=== PATIENT | male | born 1955 | race American Indian/Alaskan Native ===

== ENCOUNTER 2016-08-22 06:00 | Inpatient (IN) | payer MEDICARE, BC ==
[2016-08-22] MEDS ORDERED: Albuterol/Ipratropium 3.0-0.5 MG/3 ML Neb Soln NEB ONE (06:33)
--- NOTE | 2016-08-22 06:41 | EDM.PDOC ---
<Alex Cooley - Last Filed: 08/22/16 06:59> ED HPI GENERAL MEDICAL PROBLEM - General Chief Complaint: Respiratory Problem Stated Complaint: ILLNESS/COLD Time Seen by Provider: 08/22/16 06:35 Source of Information: Reports: Patient, Family History Limitations: Reports: No Limitations - History of Present Illness INITIAL COMMENTS - FREE TEXT/NARRATIVE: 61-year-old male who denies a history of respiratory illness presents with a 4 day history of worsening cough and shortness of breath. Yesterday he coughed so hard he became incontinent. It's become productive of sputum over the last 2 days and he thinks he's had an off-and-on fever. 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 His only other complaint is a flareup of recurring groin cystic lesions that are draining Onset: Gradual Worsens with: Reports: Other (Activity causes shortness of breath), Movement Associated Symptoms: Reports: Cough, Fever/Chills, Shortness of Breath, Weakness , Other (Incontinence from the coughing) Headache Pain Score (Numeric/FACES): 5 - Related Data Allergies Allergy/AdvReac Type Severity Reaction Status Date / Time Penicillins Allergy Rash Verified 08/22/16 06:09 shellfish derived Allergy Swollen Verified 08/22/16 06:09 Tongue Home Meds: Home Meds amLODIPine Besylate [Norvasc] 5 mg PO DAILY 12/13/12 [History] Furosemide [Lasix] 20 mg PO DAILY 08/22/16 [History] Metoprolol Tartrate [Lopressor] 100 mg PO BEDTIME 08/22/16 [History] traMADol [Ultram] 50 mg PO BID PRN 08/22/16 [History] Past Medical History Cardiovascular History: Reports: Hypertension Musculoskeletal History: Reports: Fracture Endocrine/Metabolic History: Reports: Obesity/BMI 30+ - Infectious Disease History Infectious Disease History: Reports: Chicken Pox - Past Surgical History GI Surgical History: Reports: Colonoscopy, Hernia, Inguinal Social & Family History - Tobacco Use Smoking Status *Q: Never Smoker Years of Tobacco use: 10 Used Tobacco, but Quit: No Second Hand Smoke Exposure: No - Caffeine Use Caffeine Use: Reports: Coffee - Alcohol Use Days Per Week of Alcohol Use: 7 Number of Drinks Per Day: 5 Total Drinks Per Week: 35 Date of Last Drink: 08/18/16 Time of Last Drink: 20:00 - Recreational Drug Use Recreational Drug Use: No Drug Use in Last 12 Months: No ED ROS GENERAL - Review of Systems Review Of Systems: See Below Constitutional: Reports: Fever, Chills, Malaise Respiratory: Reports: Shortness of Breath, Cough, Sputum Cardiovascular: Denies: Chest Pain GI/Abdominal: Denies: Abdominal Pain, Nausea, Vomiting Skin: Reports: Other (Draining cystic lesions in the groins) Neurological: Denies: Headache ED EXAM, GENERAL - Physical Exam Exam: See Below Free Text/Narrative:: Patient has mild increased respiratory effort and O2 saturations on room air were only 81-84%. Exam Limited By: No Limitations General Appearance: Alert, Mild Distress Eye Exam: Bilateral Eye: EOMI Respiratory/Chest: Wheezing (Diffuse inspiratory and expiratory wheezing is heard) Cardiovascular: Regular Rate, Rhythm GI/Abdominal: Soft, Non-Tender Neurological: Alert, Oriented Psychiatric: Normal Affect, Normal Mood Course - Vital Signs Last Recorded V/S: Last Vital Signs Temp 37.6 C 08/22/16 09:56 Pulse 92 08/22/16 09:56 Resp 20 08/22/16 09:56 BP 150/72 H 08/22/16 09:56 Pulse Ox 91 L 08/22/16 09:56 - Orders/Labs/Meds Orders: Active Orders 24 hr Category Date Time Status Patient Status [ADT] Routine ADT 08/22/16 08:23 Active Height and Weight [RC] DAILY Care 08/22/16 08:22 Active Intake and Output [RC] QSHIFT Care 08/22/16 08:25 Active Oxygen Therapy [RC] PRN Care 08/22/16 08:23 Active RT Aerosol Therapy [RC] ASDIRECTED Care 08/22/16 06:33 Active Up ad Brittney [RC] ASDIRECTED Care 08/22/16 08:22 Active Up to Chair [RC] QID Care 08/22/16 08:22 Active VTE/DVT Education [RC] Per Unit Routine Care 08/22/16 08:23 Active Regular Diet [DIET] Diet 08/22/16 Lunch Active CULTURE BLOOD [BC] Stat Lab 08/22/16 07:45 Received CULTURE RESPIRATORY + SMEAR [RM] Stat Lab 08/22/16 07:36 Results LEGIONELLA FA STAIN [MREF] Stat Lab 08/22/16 10:04 Received LEGIONELLA,AB IGG/IGM/IGA [REF] Routine Lab 08/22/16 07:00 Received Enoxaparin [Lovenox] Med 08/22/16 09:00 Active 30 mg SUBCUT DAILY Sodium Chloride 0.9% [Saline Flush] Med 08/22/16 08:22 Active 10 ml FLUSH ASDIRECTED PRN Saline Lock Insert [OM.PC] Routine Oth 08/22/16 08:22 Ordered Resuscitation Status Routine Resus Stat 08/22/16 08:22 Ordered Medication Orders Albuterol (Proventil Neb Soln) 2.5 mg NEB Q2H PRN PRN Reason: Congestion Enoxaparin Sodium (Lovenox) 30 mg SUBCUT DAILY ANGEL Last Admin: 08/22/16 11:02 Dose: 30 mg Azithromycin 500 mg/ Sodium (Chloride) 250 mls @ 250 mls/hr IV Q24H ANGEL Levofloxacin/Dextrose 500 mg/ (Premix) 100 mls @ 100 mls/hr IV Q24H ANGEL Sodium Chloride (Saline Flush) 10 ml FLUSH ASDIRECTED PRN PRN Reason: Keep Vein Open Last Admin: 08/22/16 08:58 Dose: 10 ml Labs: Laboratory Tests 08/22/16 08/22/16 08/22/16 Range/Units 07:09 07:09 07:21 WBC 10.3 (4.5-11.0) K/uL RBC 5.78 (4.30-5.90) M/uL Hgb 17.7 H (12.0-15.0) g/dL Hct 54.2 H (40.0-54.0) % MCV 94 (80-98) fL MCH 31 (27-31) pg MCHC 33 (32-36) % Plt Count 227 (150-400) K/uL Neut % (Auto) 70 H (36-66) % Lymph % (Auto) 12 L (24-44) % [place] % (Auto) 16 H (2-6) % Eos % (Auto) 1 L (2-4) % Baso % (Auto) 1 (0-1) % Sodium 139 L (140-148) mmol/L Potassium 3.5 L (3.6-5.2) mmol/L Chloride 100 (100-108) mmol/L Carbon Dioxide 31 (21-32) mmol/L Anion Gap 11.5 (5.0-14.0) mmol/L BUN 9 (7-18) mg/dL Creatinine 0.9 (0.8-1.3) mg/dL Est Cr Clr Drug Dosing 78.54 mL/min Estimated GFR (MDRD) > 60 (>60) Glucose 144 H (74-106) mg/dL Calcium 8.6 (8.5-10.1) mg/dL Afo-O-Tixaonavieh Pept 233 H (5-125) pg/mL Meds: Medications Generic Name Dose Route Start Last Admin Trade Name Aneesh PRN Reason Stop Dose Admin Albuterol 2.5 mg 08/22/16 08:33 Proventil Neb Soln NEB Q2H PRN Congestion Enoxaparin Sodium 30 mg 08/22/16 09:00 08/22/16 11:02 Lovenox SUBCUT 30 mg DAILY ANGEL Administration Azithromycin 500 mg/ Sodium 250 mls @ 250 mls/hr 08/23/16 10:00 Chloride IV Q24H ANGEL Levofloxacin/Dextrose 500 mg/ 100 mls @ 100 mls/hr 08/23/16 09:00 Premix IV Q24H ANGEL Sodium Chloride 10 ml 08/22/16 08:22 08/22/16 08:58 Saline Flush FLUSH 10 ml ASDIRECTED PRN Administration Keep Vein Open Discontinued Medications Generic Name Dose Route Start Last Admin Trade Name Aneesh PRN Reason Stop Dose Admin Albuterol/Ipratropium 3 ml 08/22/16 06:33 08/22/16 06:39 Duoneb 3.0-0.5 Mg/3 Ml NEB 08/22/16 06:34 3 ml ONETIME ONE Administration Levofloxacin/Dextrose 500 mg/ 100 mls @ 100 mls/hr 08/22/16 09:00 08/22/16 09 :03 Premix IV 08/22/16 09:59 100 mls/hr ONETIME ONE Administration Azithromycin 500 mg/ Sodium 250 mls @ 250 mls/hr 08/22/16 10:00 08/22/16 11: 02 Chloride IV 08/22/16 10:59 250 mls/hr ONETIME ONE Administration - Re-Assessments/Exams Free Text/Narrative Re-Assessment/Exam: 08/22/16 07:01 O2 saturations initially on room air were 80-82%. A DuoNeb was then given without significant objective improvement. Patient did cough some sputum that was collected. A CBC and BMP were obtained and the patient was sent back for a two-view chest x-ray, sputum culture was ordered. Care was turned over to Dr. Chaparro. Departure - Departure Disposition: Admitted As Inpatient 64 Clinical Impression: Atypical pneumonia, Hypoxia - Discharge Information - My Orders Last 24 Hours: My Active Orders 08/22/16 07:00 LEGIONELLA,AB IGG/IGM/IGA [REF] Routine 08/22/16 07:45 CULTURE BLOOD [BC] Stat 08/22/16 10:04 LEGIONELLA FA STAIN [MREF] Stat - Assessment/Plan Last 24 Hours: My Active Orders 08/22/16 07:00 LEGIONELLA,AB IGG/IGM/IGA [REF] Routine 08/22/16 07:45 CULTURE BLOOD [BC] Stat 08/22/16 10:04 LEGIONELLA FA STAIN [MREF] Stat <Gilson Chaparro G - Last Filed: 08/22/16 15:16> Course - Vital Signs Text/Narrative:: Dr. Arshad called @ [facility]. To see in the ED. Departure - Departure Time of Disposition: 08:35 Condition: fair
[2016-08-22] MEDS ORDERED: Sodium Chloride 0.9% 10 ML Syringe FLUSH PRN ×2 (08:22→18:00)
--- NOTE | 2016-08-22 08:41 | CR ---
Chest 2V HISTORY: dyspnea COMPARISON: 01/03/2007 FINDINGS: Interstitial lung pattern is mildly prominent diffusely compared to the prior study. Appea constantino is nonspecific. No focal consolidation is seen. Heart size is within normal limits and stable. There is no vascular redistribution or pleural fluid. There is mild flattening of the diaphragms lockhart ggesting a component of COPD. Mild atherosclerotic calcification is noted in the aortic arch. IMPRESSION: Mild nonspecific interstitial prominence. Mild nonspecific pneumonitis could be consider ed. Lungs are hyperinflated suggesting a component of COPD.
[2016-08-22] MEDS ORDERED: Levofloxacin/Dextrose 5%-Water 500 MG in Premix Bag 1 BAG IV ONE (09:00)
[2016-08-22] MEDS ORDERED: Azithromycin 500 MG in Sodium Chloride 0.9% 250 ML IV ONE ×2 (09:00→10:00)
[2016-08-22] MEDS: Enoxaparin 30 MG/0.3 ML Syringe SUBCUT SCH (11:02)
[2016-08-22] MEDS: Albuterol 0.083% 2.5 MG/3 ML Neb Soln NEB PRN ×2 (17:31→21:42)
--- NOTE | 2016-08-22 17:41 | PCM.HP ---
H&P History of Present Illness - General Date of Service: 08/22/16 Admit Problem/Dx: Admission Diagnosis/Problem Admission Diagnosis/Problem Pneumonia - History of Present Illness Initial Comments - Free Text/Narative: Louis comes in because of shortness of breath and coughing. He hasn't slept for several nights and feels feverish. It has been getting worse for the last 4 days and didn't want to come in thinking it would get better. He also has a cough with yellow production. He recently coughed so hard he fainted and had loss of urine. Onset of Symptoms: Reports: Gradual Duration of Symptoms: Reports: Day(s): Location: Reports: Chest Associated Symptoms: Reports: Cough, Fever/Chills, Loss of Appetite, Shortness of Breath, Weakness Headache Pain Score (Numeric/FACES): 0 - Related Data Allergies/Adverse Reactions: Allergies Allergy/AdvReac Type Severity Reaction Status Date / Time Penicillins Allergy Rash Verified 08/22/16 06:09 shellfish derived Allergy Swollen Verified 08/22/16 06:09 Tongue Home Medications: Home Meds amLODIPine Besylate [Norvasc] 5 mg PO DAILY 12/13/12 [History] Furosemide [Lasix] 20 mg PO DAILY 08/22/16 [History] traMADol [Ultram] 50 mg PO BID PRN 08/22/16 [History] Metoprolol Succinate [Toprol XL 100mg] 100 mg PO BEDTIME 08/23/16 [History] Past Medical History Cardiovascular History: Reports: Hypertension Respiratory History: Reports: Sleep Apnea Musculoskeletal History: Reports: Fracture Endocrine/Metabolic History: Reports: Obesity/BMI 30+ - Infectious Disease History Infectious Disease History: Reports: Chicken Pox - Past Surgical History GI Surgical History: Reports: Colonoscopy, Hernia, Inguinal Social & Family History - Family History Family Medical History: Noncontributory - Tobacco Use Smoking Status *Q: Former Smoker Years of Tobacco use: 1 Packs/Tins Daily: 0.5 Used Tobacco, but Quit: Yes Month Tobacco Last Used: unknown Second Hand Smoke Exposure: No - Caffeine Use Caffeine Use: Reports: Coffee - Alcohol Use Days Per Week of Alcohol Use: 7 Number of Drinks Per Day: 2 Total Drinks Per Week: 14 Date of Last Drink: 08/18/16 Time of Last Drink: 20:00 - Recreational Drug Use Recreational Drug Use: No Drug Use in Last 12 Months: No H&P Review of Systems - Review of Systems: Review Of Systems: See Below General: Reports: Fever, Chills, Weakness, Fatigue, Decreased Appetite Pulmonary: Reports: Shortness of Breath, Wheezing, Cough, Sputum Cardiovascular: Reports: Dyspnea on Exertion, Orthopnea Gastrointestinal: Reports: Nausea Genitourinary: Reports: Incontinence Musculoskeletal: Reports: Muscle Pain Neurological: Reports: Difficulty Walking, Weakness Exam - Exam Exam: See Below - Vital Signs Vital Signs: Last Vital Signs Temp 99.7 F 08/22/16 09:56 Pulse 92 08/22/16 09:56 Resp 20 08/22/16 09:56 BP 150/72 H 08/22/16 09:56 Pulse Ox 91 L 08/22/16 09:56 Weight: 354 lb - Exam Quality Assessment: Supplemental Oxygen General: Oriented, Cooperative, Other HEENT: PERRLA, Conjunctiva Clear, EACs Clear, Posterior Pharynx Clear Neck: Supple Lungs: Decreased Breath Sounds, Rhonchi, Wheezing Cardiovascular: Regular Rate Abdomen: Normal Bowel Sounds Back Exam: Normal Inspection Extremities: Edema Peripheral Pulses: 1+: Radial (L), Radial (R) Skin: Other (lesion on the groin area cysts that are draining.) Neuro Extensive - Mental Status: Alert, Oriented x3, Normal Mood/Affect, Normal Cognition Neuro Extensive - Motor, Sensory, Reflexes: Abnormal Gait DTR: 1+: Bicep (L), Bicep (R) - Patient Data Result Diagrams: 08/23/16 08:53 08/23/16 08:53 *Q Meaningful Use (ADM) - VTE *Q VTE Criteria *Q: - Stroke *Q Stroke Criteria *Q: - AMI *Q AMI Criteria *Q: Problem List Initiated/Reviewed/Updated: Yes Orders Last 24hrs: Active Orders 24 hr Category Date Time Status Albuterol [Proventil Neb Soln] Med 08/22/16 08:33 Active 2.5 mg NEB Q2H PRN Azithromycin [Zithromax] 500 mg Med 08/23/16 10:00 Active Sodium Chloride 0.9% [Normal Saline] 250 ml IV Q24H Levofloxacin/Dextrose 5%-Water [Levaquin in D5W 500 MG/ Med 08/23/16 09:00 Active 100 ML] 500 mg Premix Bag 1 bag IV Q24H RT Acapella [RESPCARE] Routine Oth 08/22/16 08:40 Active Medication Orders Albuterol (Proventil Neb Soln) 2.5 mg NEB Q2H PRN PRN Reason: Congestion Last Admin: 08/22/16 17:31 Dose: 2.5 mg Enoxaparin Sodium (Lovenox) 30 mg SUBCUT DAILY ANGEL Last Admin: 08/22/16 11:02 Dose: 30 mg Azithromycin 500 mg/ Sodium (Chloride) 250 mls @ 250 mls/hr IV Q24H ANGEL Levofloxacin/Dextrose 500 mg/ (Premix) 100 mls @ 100 mls/hr IV Q24H ANGEL Sodium Chloride (Saline Flush) 10 ml FLUSH ASDIRECTED PRN PRN Reason: Keep Vein Open Last Admin: 08/22/16 08:58 Dose: 10 ml Assessment/Plan Comment:: Assessment/Plan: #1. Pneumonia. Will admit to the hospital and wait for the cultures. #2. Hypoxemia: He needs oxygen as on 3 liters his sat is only 91% #3. Hypertension: Will check closely and adjust meds as needed. His BP is good control at the present time. #4. DM II: Will follow blood sugars #5. Furuncle: This should resolve with the meds to be given. #6. Morbid obesity: I will continue to encourage him to lose weight. #7. COPD: Will give nebs and do a PFT when improved.
[2016-08-22] MEDS ORDERED: Sodium Chloride 0.9% 100 ML IV ONE (18:00)
[2016-08-22] MEDS ORDERED: Iopamidol 755 Mg/ML 100 ML Bottle IV SCH (18:00)
[2016-08-22] MEDS ORDERED: Metoprolol Tartrate 50 MG Tab PO SCH (22:30)
[2016-08-23] MEDS: Enoxaparin 30 MG/0.3 ML Syringe SUBCUT SCH (08:30)
[2016-08-23] MEDS: Levofloxacin/Dextrose 5%-Water 500 MG in Premix Bag 1 BAG IV SCH (08:31)
[2016-08-23] MEDS: Albuterol 0.083% 2.5 MG/3 ML Neb Soln NEB PRN ×3 (08:50→20:21)
[2016-08-23] MEDS: Azithromycin 500 MG in Sodium Chloride 0.9% 250 ML IV SCH (09:48)
[2016-08-23] MEDS ORDERED: Metoprolol Succinate 50 MG Tab.ER PO SCH (21:00)
[2016-08-23] MEDS ORDERED: Metoprolol Tartrate 25 MG Tab PO SCH (21:00)
--- NOTE | 2016-08-23 22:12 | PCM.PN ---
- General Info Date of Service: 08/23/16 Subjective Update: He still has respiratory distress and on 3 liters of oxygen. - Review of Systems General: Reports: Weakness Pulmonary: Reports: shortness of breath, cough, sputum, wheezing Cardiovascular: Reports: Dyspnea on Exertion Gastrointestinal: Reports: Decreased appetite Genitourinary: Reports: incontinence (Loss of urine in the past but not presently.) Skin: Reports: rash Neurological: Reports: Weakness Psychiatric: Reports: depression - Patient Data Vitals - most recent: Last Vital Signs Temp 99.1 F 08/23/16 19:00 Pulse 87 08/23/16 20:21 Resp 16 08/23/16 19:00 BP 129/68 08/23/16 20:21 Pulse Ox 93 L 08/23/16 19:00 Weight - most recent: 354 lb I&O - last 24 hours: Intake & Output 08/23/16 08/23/16 08/23/16 06:59 14:59 22:59 Intake Total 360 250 Balance 360 250 Lab Results last 24 hrs: Laboratory Results - last 24 hr 08/23/16 08/23/16 Range/Units 08:53 08:53 WBC 7.5 (4.5-11.0) K/uL RBC 5.47 (4.30-5.90) M/uL Hgb 16.9 H (12.0-15.0) g/dL Hct 51.7 (40.0-54.0) % MCV 95 (80-98) fL MCH 31 (27-31) pg MCHC 33 (32-36) % Plt Count 208 (150-400) K/uL Neut % (Auto) 62 (36-66) % Lymph % (Auto) 20 L (24-44) % [place] % (Auto) 15 H (2-6) % Eos % (Auto) 2 (2-4) % Baso % (Auto) 1 (0-1) % Sodium 142 (140-148) mmol/L Potassium 3.8 (3.6-5.2) mmol/L Chloride 102 (100-108) mmol/L Carbon Dioxide 31 (21-32) mmol/L Anion Gap 9.0 (5.0-14.0) mmol/L BUN 13 (7-18) mg/dL Creatinine 0.8 (0.8-1.3) mg/dL Est Cr Clr Drug Dosing 88.36 mL/min Estimated GFR (MDRD) > 60 (>60) Glucose 123 H (74-106) mg/dL Calcium 8.4 L (8.5-10.1) mg/dL Med Orders - Current: Current Medications Albuterol (Proventil Neb Soln) 2.5 mg NEB Q2H PRN PRN Reason: Congestion Last Admin: 08/23/16 20:21 Dose: 2.5 mg Enoxaparin Sodium (Lovenox) 40 mg SUBCUT DAILY [facility] Azithromycin 500 mg/ Sodium (Chloride) 250 mls @ 250 mls/hr IV Q24H ANGEL Last Admin: 08/23/16 09:48 Dose: 250 mls/hr Levofloxacin/Dextrose 500 mg/ (Premix) 100 mls @ 100 mls/hr IV Q24H [facility] Last Admin: 08/23/16 08:31 Dose: 100 mls/hr Metoprolol Succinate (Toprol Xl) 100 mg PO BEDTIME [facility] Last Admin: 08/23/16 20:21 Dose: 100 mg Sodium Chloride (Saline Flush) 10 ml FLUSH ASDIRECTED PRN PRN Reason: Keep Vein Open Last Admin: 08/22/16 08:58 Dose: 10 ml Discontinued Medications Albuterol/Ipratropium (Duoneb 3.0-0.5 Mg/3 Ml) 3 ml NEB ONETIME ONE Stop: 08/22/16 06:34 Last Admin: 08/22/16 06:39 Dose: 3 ml Enoxaparin Sodium (Lovenox) 30 mg SUBCUT DAILY [facility] Last Admin: 08/23/16 08:30 Dose: 30 mg Levofloxacin/Dextrose 500 mg/ (Premix) 100 mls @ 100 mls/hr IV ONETIME ONE Stop: 08/22/16 09:59 Last Admin: 08/22/16 09:03 Dose: 100 mls/hr Azithromycin 500 mg/ Sodium (Chloride) 250 mls @ 250 mls/hr IV ONETIME ONE Stop: 08/22/16 10:59 Last Admin: 08/22/16 11:02 Dose: 250 mls/hr Sodium Chloride (Normal Saline) 100 mls @ 3 mls/sec IV ONETIME ONE Stop: 08/22/16 18:01 Last Admin: 08/22/16 18:16 Dose: 3 mls/sec Iopamidol (Isovue-370 (76%)) 100 ml IV . DIRECTED ANGEL Last Admin: 08/22/16 18:16 Dose: 100 ml Metoprolol Tartrate (Lopressor) 100 mg PO BEDTIME ANGEL Metoprolol Tartrate (Lopressor) 100 mg PO BEDTIME ANGEL Last Admin: 08/23/16 03:11 Dose: Not Given Sodium Chloride (Saline Flush) 10 ml FLUSH ONETIME PRN PRN Reason: PER RADIOLOGY PROTOCOL Last Admin: 08/22/16 18:16 Dose: 10 ml - Problem List Review Problem List Initiated/Reviewed/Updated: Yes - My Orders Last 24 Hours: My Active Orders 08/23/16 09:00 Levofloxacin/Dextrose 5%-Water [Levaquin in D5W 500 MG/100 ML] 500 mg Premix Bag 1 bag IV Q24H 08/23/16 10:00 Azithromycin [Zithromax] 500 mg Sodium Chloride 0.9% [Normal Saline] 250 ml IV Q24H 08/23/16 21:00 Metoprolol Succinate [Toprol XL] 100 mg PO BEDTIME 08/24/16 09:00 Enoxaparin [Lovenox] 40 mg SUBCUT DAILY - Plan Plan:: Assessment/Plan: #1. Pneumonia. The chest film showed a reticular pattern of lung disease. #2. Hypoxemia: He needs oxygen as on 3 liters his sat is only 91%. with oxygen and is concerned with a possible PE. A CT was done which did not show any evidence of a PE. #3. Hypertension: Will check closely and adjust meds as needed. His BP is good control at the present time. #4. DM II: Blood sugars are slightly elevated. #5. Furuncle: This should resolve with the meds to be given. #6. Morbid obesity: I will continue to encourage him to lose weight. #7. COPD: Will give nebs and do a PFT when improved.
[2016-08-24] MEDS: Albuterol 0.083% 2.5 MG/3 ML Neb Soln NEB PRN (07:24)
[2016-08-24] MEDS: Enoxaparin 40 MG/0.4 ML Syringe SUBCUT SCH (09:18)
[2016-08-24] MEDS: Levofloxacin/Dextrose 5%-Water 500 MG in Premix Bag 1 BAG IV SCH (09:18)
[2016-08-24] MEDS: Azithromycin 500 MG in Sodium Chloride 0.9% 250 ML IV SCH (10:41)
[2016-08-24] MEDS: Albuterol/Ipratropium 3.0-0.5 MG/3 ML Neb Soln NEB SCH ×3 (11:15→20:53)
[2016-08-24] MEDS ORDERED: Metoprolol Succinate 50 MG Tab.ER PO SCH ×2 (12:00→21:00)
[2016-08-24] MEDS: Furosemide 20 MG Tab PO SCH ×2 (12:42→12:56)
[2016-08-24] MEDS: amLODIPine 10 MG Tab PO SCH (13:46)
--- NOTE | 2016-08-24 19:52 | PCM.PN ---
- General Info Date of Service: 08/24/16 Admission Dx/Problem (Free Text): Continues to have respiratory distress and on 4 liters of Oxygen Functional Status: Reports: pain controlled - Review of Systems General: Reports: Fatigue HEENT: Reports: no symptoms Pulmonary: Reports: shortness of breath, cough, sputum Cardiovascular: Reports: Dyspnea on Exertion Gastrointestinal: Reports: No symptoms Genitourinary: Reports: no symptoms Musculoskeletal: Reports: no symptoms Psychiatric: Reports: no symptoms - Patient Data Vitals - most recent: Last Vital Signs Temp 99.2 F 08/24/16 19:00 Pulse 84 08/24/16 19:00 Resp 20 08/24/16 19:00 BP 135/64 08/24/16 19:00 Pulse Ox 93 L 08/24/16 19:00 Weight - most recent: 356 lb 14.4 oz I&O - last 24 hours: Intake & Output 08/24/16 08/24/16 08/24/16 06:59 14:59 22:59 Intake Total 1070 800 Balance 1070 800 [place]in Results last 24 hrs: Microbiology 08/22/16 10:04 Specimen Source - Final Sputum - Expectorated Legionella Direct FA - Final Specimen Comment (AYDIN) - Final Med Orders - Current: Current Medications Albuterol (Proventil Neb Soln) 2.5 mg NEB Q2H PRN PRN Reason: Congestion Last Admin: 08/24/16 07:24 Dose: 2.5 mg Albuterol/Ipratropium (Duoneb 3.0-0.5 Mg/3 Ml) 3 ml NEB QIDRT [facility] Last Admin: 08/24/16 14:30 Dose: 3 ml Amlodipine Besylate (Norvasc) 10 mg PO DAILY [facility] Last Admin: 08/24/16 13:46 Dose: Not Given Enoxaparin Sodium (Lovenox) 40 mg SUBCUT DAILY [facility] Last Admin: 08/24/16 09:18 Dose: 40 mg Furosemide (Lasix) 20 mg PO DAILY [facility] Last Admin: 08/24/16 12:56 Dose: Not Given Azithromycin 500 mg/ Sodium (Chloride) 250 mls @ 250 mls/hr IV Q24H [facility] Last Admin: 08/24/16 10:41 Dose: 250 mls/hr Levofloxacin/Dextrose 500 mg/ (Premix) 100 mls @ 100 mls/hr IV Q24H [facility] Last Admin: 08/24/16 09:18 Dose: 100 mls/hr Metoprolol Succinate (Toprol Xl) 100 mg PO DAILY [facility] Sodium Chloride (Saline Flush) 10 ml FLUSH ASDIRECTED PRN PRN Reason: Keep Vein Open Last Admin: 08/22/16 08:58 Dose: 10 ml Discontinued Medications Albuterol/Ipratropium (Duoneb 3.0-0.5 Mg/3 Ml) 3 ml NEB ONETIME ONE Stop: 08/22/16 06:34 Last Admin: 08/22/16 06:39 Dose: 3 ml Amlodipine Besylate (Norvasc) 10 mg PO BEDTIME [facility] Enoxaparin Sodium (Lovenox) 30 mg SUBCUT DAILY [facility] Last Admin: 08/23/16 08:30 Dose: 30 mg Levofloxacin/Dextrose 500 mg/ (Premix) 100 mls @ 100 mls/hr IV ONETIME ONE Stop: 08/22/16 09:59 Last Admin: 08/22/16 09:03 Dose: 100 mls/hr Azithromycin 500 mg/ Sodium (Chloride) 250 mls @ 250 mls/hr IV ONETIME ONE Stop: 08/22/16 10:59 Last Admin: 08/22/16 11:02 Dose: 250 mls/hr Sodium Chloride (Normal Saline) 100 mls @ 3 mls/sec IV ONETIME ONE Stop: 08/22/16 18:01 Last Admin: 08/22/16 18:16 Dose: 3 mls/sec Iopamidol (Isovue-370 (76%)) 100 ml IV . DIRECTED [facility] Last Admin: 08/22/16 18:16 Dose: 100 ml Metoprolol Succinate (Toprol Xl) 100 mg PO BEDTIME [facility] Last Admin: 08/23/16 20:21 Dose: 100 mg Metoprolol Succinate (Toprol Xl) 100 mg PO DAILY [facility] Last Admin: 08/24/16 13:45 Dose: Not Given Metoprolol Tartrate (Lopressor) 100 mg PO BEDTIME [facility] Metoprolol Tartrate (Lopressor) 100 mg PO BEDTIME [facility] Last Admin: 08/23/16 03:11 Dose: Not Given Sodium Chloride (Saline Flush) 10 ml FLUSH ONETIME PRN PRN Reason: PER RADIOLOGY PROTOCOL Last Admin: 08/22/16 18:16 Dose: 10 ml - Exam General: alert, oriented HEENT: Pupils equal, Pupils reactive, EOMI, Mucous membr. moist/pink Neck: supple Lungs: Clear to auscultation, Normal respiratory effort Cardiovascular: Regular Rate, Regular Rhythm Back Exam: Normal Inspection Extremities: edema Peripheral Pulses: 1+: Radial (L), Radial (R) Neurological: no new focal deficit Psy/Mental Status: alert, normal affect, normal mood - Problem List Review Problem List Initiated/Reviewed/Updated: Yes - My Orders Last 24 Hours: My Active Orders 08/24/16 09:00 Enoxaparin [Lovenox] 40 mg SUBCUT DAILY 08/24/16 10:45 Echo Comp wo Cont [US] Routine 08/24/16 11:00 Albuterol/Ipratropium [DuoNeb 3.0-0.5 MG/3 ML] 3 ml NEB QIDRT 08/24/16 11:06 RT Aerosol Therapy [RC] ASDIRECTED 08/24/16 11:15 Furosemide [Lasix] 20 mg PO DAILY 08/24/16 13:55 RT Evaluate for Home Oxygen [RC] Click to Edit 08/24/16 14:00 amLODIPine [Norvasc] 10 mg PO DAILY 08/24/16 21:00 Metoprolol Succinate [Toprol XL] 100 mg PO DAILY - Plan Plan:: Assessment/Plan: #1. Pneumonia. The chest film showed a reticular pattern of lung disease. CXR-in the morning. #2. Hypoxemia: He needs oxygen as on 4 liters his sat is only 91%. Able to walk better today than for the last several days. #3. Hypertension: Adjkusted meds today. #4. DM II: Blood sugars are slightly elevated. #5. Furuncle: This should resolve with the meds to be given. #6. Morbid obesity: I will continue to encourage him to lose weight. #7. COPD: Will give nebs and do a PFT when improved. Will do PFT tomorrow with and without oxygen and do a c-pap tonight with and without oxygen to see if he needs oxygen at night.
[2016-08-24] MEDS ORDERED: amLODIPine 10 MG Tab PO SCH (21:00)
[2016-08-25] MEDS: Albuterol/Ipratropium 3.0-0.5 MG/3 ML Neb Soln NEB SCH ×2 (07:26→10:50)
[2016-08-25] MEDS: Furosemide 20 MG Tab PO SCH (08:06)
[2016-08-25] MEDS: amLODIPine 10 MG Tab PO SCH (08:06)
[2016-08-25] MEDS: Enoxaparin 40 MG/0.4 ML Syringe SUBCUT SCH (08:07)
[2016-08-25] MEDS: Levofloxacin/Dextrose 5%-Water 500 MG in Premix Bag 1 BAG IV SCH (08:07)
--- NOTE | 2016-08-25 08:16 | PCM.PN ---
- General Info Date of Service: 08/25/16 Functional Status: Reports: pain controlled - Review of Systems General: Reports: No Symptoms HEENT: Reports: no symptoms Pulmonary: Reports: shortness of breath, cough, sputum Cardiovascular: Reports: Dyspnea on Exertion Gastrointestinal: Reports: No symptoms Genitourinary: Reports: no symptoms Musculoskeletal: Reports: no symptoms Skin: Reports: no symptoms Neurological: Reports: No Symptoms Psychiatric: Reports: no symptoms - Patient Data Vitals - most recent: Last Vital Signs Temp 97.5 F 08/25/16 07:11 Pulse 67 08/25/16 07:11 Resp 18 08/25/16 07:11 BP 123/63 08/25/16 08:06 Pulse Ox 92 L 08/25/16 07:11 Weight - most recent: 365 lb 12.8 oz I&O - last 24 hours: Intake & Output 08/24/16 08/25/16 08/25/16 22:59 06:59 14:59 Intake Total 800 Balance 800 Aydin Results last 24 hrs: Microbiology 08/22/16 10:04 Specimen Source - Final Sputum - Expectorated Legionella Direct FA - Final Specimen Comment (AYDIN) - Final Med Orders - Current: Current Medications Albuterol (Proventil Neb Soln) 2.5 mg NEB Q2H PRN PRN Reason: Congestion Last Admin: 08/24/16 07:24 Dose: 2.5 mg Albuterol/Ipratropium (Duoneb 3.0-0.5 Mg/3 Ml) 3 ml NEB QIDRT [facility] Last Admin: 08/25/16 07:26 Dose: 3 ml Amlodipine Besylate (Norvasc) 10 mg PO DAILY [facility] Last Admin: 08/25/16 08:06 Dose: 10 mg Enoxaparin Sodium (Lovenox) 40 mg SUBCUT DAILY [facility] Last Admin: 08/25/16 08:07 Dose: 40 mg Furosemide (Lasix) 20 mg PO DAILY [facility] Last Admin: 08/25/16 08:06 Dose: 20 mg Azithromycin 500 mg/ Sodium (Chloride) 250 mls @ 250 mls/hr IV Q24H [facility] Last Admin: 08/24/16 10:41 Dose: 250 mls/hr Levofloxacin/Dextrose 500 mg/ (Premix) 100 mls @ 100 mls/hr IV Q24H [facility] Last Admin: 08/25/16 08:07 Dose: 100 mls/hr Metoprolol Succinate (Toprol Xl) 100 mg PO BEDTIME [facility] Sodium Chloride (Saline Flush) 10 ml FLUSH ASDIRECTED PRN PRN Reason: Keep Vein Open Last Admin: 08/22/16 08:58 Dose: 10 ml Discontinued Medications Albuterol/Ipratropium (Duoneb 3.0-0.5 Mg/3 Ml) 3 ml NEB ONETIME ONE Stop: 08/22/16 06:34 Last Admin: 08/22/16 06:39 Dose: 3 ml Amlodipine Besylate (Norvasc) 10 mg PO BEDTIME [facility] Enoxaparin Sodium (Lovenox) 30 mg SUBCUT DAILY [facility] Last Admin: 08/23/16 08:30 Dose: 30 mg Levofloxacin/Dextrose 500 mg/ (Premix) 100 mls @ 100 mls/hr IV ONETIME ONE Stop: 08/22/16 09:59 Last Admin: 08/22/16 09:03 Dose: 100 mls/hr Azithromycin 500 mg/ Sodium (Chloride) 250 mls @ 250 mls/hr IV ONETIME ONE Stop: 08/22/16 10:59 Last Admin: 08/22/16 11:02 Dose: 250 mls/hr Sodium Chloride (Normal Saline) 100 mls @ 3 mls/sec IV ONETIME ONE Stop: 08/22/16 18:01 Last Admin: 08/22/16 18:16 Dose: 3 mls/sec Iopamidol (Isovue-370 (76%)) 100 ml IV . DIRECTED [facility] Last Admin: 08/22/16 18:16 Dose: 100 ml Metoprolol Succinate (Toprol Xl) 100 mg PO BEDTIME [facility] Last Admin: 08/23/16 20:21 Dose: 100 mg Metoprolol Succinate (Toprol Xl) 100 mg PO DAILY [facility] Last Admin: 08/24/16 13:45 Dose: Not Given Metoprolol Succinate (Toprol Xl) 100 mg PO DAILY [facility] Last Admin: 08/24/16 20:52 Dose: 100 mg Metoprolol Tartrate (Lopressor) 100 mg PO BEDTIME [facility] Metoprolol Tartrate (Lopressor) 100 mg PO BEDTIME [facility] Last Admin: 08/23/16 03:11 Dose: Not Given Sodium Chloride (Saline Flush) 10 ml FLUSH ONETIME PRN PRN Reason: PER RADIOLOGY PROTOCOL Last Admin: 08/22/16 18:16 Dose: 10 ml - Exam General: alert, oriented HEENT: Pupils equal, Pupils reactive, EOMI, Mucous membr. moist/pink Neck: supple Lungs: Clear to auscultation, Normal respiratory effort Cardiovascular: Regular Rate, Regular Rhythm Abdomen: bowel sounds present, soft, no tenderness, no distension Extremities: edema Peripheral Pulses: 1+: Radial (L), Radial (R) Skin: warm, dry, intact Psy/Mental Status: alert, normal affect, normal mood - Problem List Review Problem List Initiated/Reviewed/Updated: Yes - My Orders Last 24 Hours: My Active Orders 08/24/16 09:00 Enoxaparin [Lovenox] 40 mg SUBCUT DAILY 08/24/16 11:00 Albuterol/Ipratropium [DuoNeb 3.0-0.5 MG/3 ML] 3 ml NEB QIDRT 08/24/16 11:06 RT Aerosol Therapy [RC] ASDIRECTED 08/24/16 11:15 Furosemide [Lasix] 20 mg PO DAILY 08/24/16 13:55 RT Evaluate for Home Oxygen [RC] Click to Edit 08/24/16 14:00 amLODIPine [Norvasc] 10 mg PO DAILY 08/25/16 05:11 CXR [Chest 2V] [CR] Routine 08/25/16 07:00 Echo Comp wo Cont [US] Routine 08/25/16 21:00 Metoprolol Succinate [Toprol XL] 100 mg PO BEDTIME - Plan Plan:: Assessment/Plan: #1. Pneumonia/bronchitis. Improving. CXR reveals no significant change minor improvement. #2. Hypoxemia: He needs oxygen as on 4 liters his sat 91% #3. Hypertension: Will check closely and adjust meds as needed. His BP is good control at the present time. #4. DM II: Will continue to follow blood sugars and do a HBA1C in the office. #5. Furuncle: This is resolving with the meds. #6. Morbid obesity: I will continue to encourage him to lose weight. #7. COPD: PFT done this morning and he does qualify for oxygen 31/10 #8. Sleep Apnea: He is on C-pap at home. He did better on C-pap and oxygen last night. Will continue C-pap and oxygen at home.
--- NOTE | 2016-08-25 08:19 | PCM.DCSUM1 ---
Discharge Summary - Hospital Course Brief History: Admitted from home in respiratory distress as he had be ill for several days. He had shortness of breath and coughing. He hadn't slept for several nights and feels feverish. It has been getting worse for the last 4 days and didn't want to come in thinking it would get better. He also has a cough with yellow production. He recently coughed so hard he fainted and had loss of urine. - Discharge Data Discharge Date: 08/25/16 Discharge Disposition: Home, Self-Care 01 Condition: Fair - Patient Summary/Data Hospital Course: He was started on antibiotics and made slow improvement. PFT showed sats on room air at rest 84% with a pulse of 69. On 3 L cannula 88% with pulse of 69. On 4L 91% with pulse of 67. CXR show a reticular pattern throughout the lung with minimal change after antibiotics. Legionella showed slightly + 1.03. Hb 16-17 while in the sospital. WBC normal. - Patient Instructions Diet, Other: Heart healths and reduced javan. Activity: As Tolerated Activity, Other: with oxygen - Discharge Plan Home Medications: Home Meds amLODIPine Besylate [Norvasc] 5 mg PO DAILY 12/13/12 [History] Furosemide [Lasix] 20 mg PO DAILY 08/22/16 [History] traMADol [Ultram] 50 mg PO BID PRN 08/22/16 [History] Metoprolol Succinate [Toprol XL 100mg] 100 mg PO BEDTIME 08/23/16 [History] Albuterol/Ipratropium [DuoNeb 3.0-0.5 MG/3 ML] 3 ml NEB QIDRT neb 08/25/16 [Rx] Azithromycin [Zithromax] 500 mg PO Q24H #7 vial 08/25/16 [Rx] Levofloxacin/Dextrose 5%-Water [Levaquin in D5W 500 MG/100 ML] 500 mg PO Q24H # 7 bag 08/25/16 [Rx] Forms: ED Department Discharge Referrals: Hira Arshad Sr, MD [Primary Care Provider] - - Discharge Summary/Plan Comment DC Time >30 min.: Yes Discharge Summary/Plan Comment: Assessment/Plan: #1. Pneumonia/bronchitis. Improving. CXR reveals no significant change minor improvement. #2. Hypoxemia: He needs oxygen as on 4 liters his sat 91% #3. Hypertension: Will check closely and adjust meds as needed. His BP is good control at the present time. #4. DM II: Will continue to follow blood sugars and do a HBA1C in the office. #5. Furuncle: This is resolving with the meds. #6. Morbid obesity: I will continue to encourage him to lose weight. #7. COPD: PFT done this morning and he does qualify for oxygen 31/10 #8. Sleep Apnea: He is on C-pap at home. He did better on C-pap and oxygen last night. Will continue C-pap and oxygen at home. - Patient Data Vitals - Most Recent: Last Vital Signs Temp 97.5 F 08/25/16 07:11 Pulse 67 08/25/16 07:11 Resp 18 08/25/16 07:11 BP 123/63 08/25/16 08:06 Pulse Ox 92 L 08/25/16 07:11 Weight - Most Recent: 365 lb 12.8 oz I&O - Last 24 hours: Intake & Output 08/24/16 08/25/16 08/25/16 22:59 06:59 14:59 Intake Total 800 Balance 800 KIMBERLY Results - Last 24 hrs: Microbiology 08/22/16 10:04 Specimen Source - Final Sputum - Expectorated Legionella Direct FA - Final Specimen Comment (KIMBERLY) - Final Med Orders - Current: Current Medications Albuterol (Proventil Neb Soln) 2.5 mg NEB Q2H PRN PRN Reason: Congestion Last Admin: 08/24/16 07:24 Dose: 2.5 mg Albuterol/Ipratropium (Duoneb 3.0-0.5 Mg/3 Ml) 3 ml NEB QIDRT [facility] Last Admin: 08/25/16 07:26 Dose: 3 ml Amlodipine Besylate (Norvasc) 10 mg PO DAILY [facility] Last Admin: 08/25/16 08:06 Dose: 10 mg Enoxaparin Sodium (Lovenox) 40 mg SUBCUT DAILY [facility] Last Admin: 08/25/16 08:07 Dose: 40 mg Furosemide (Lasix) 20 mg PO DAILY [facility] Last Admin: 08/25/16 08:06 Dose: 20 mg Azithromycin 500 mg/ Sodium (Chloride) 250 mls @ 250 mls/hr IV Q24H [facility] Last Admin: 08/24/16 10:41 Dose: 250 mls/hr Levofloxacin/Dextrose 500 mg/ (Premix) 100 mls @ 100 mls/hr IV Q24H [facility] Last Admin: 08/25/16 08:07 Dose: 100 mls/hr Metoprolol Succinate (Toprol Xl) 100 mg PO BEDTIME [facility] Sodium Chloride (Saline Flush) 10 ml FLUSH ASDIRECTED PRN PRN Reason: Keep Vein Open Last Admin: 08/22/16 08:58 Dose: 10 ml Discontinued Medications Albuterol/Ipratropium (Duoneb 3.0-0.5 Mg/3 Ml) 3 ml NEB ONETIME ONE Stop: 08/22/16 06:34 Last Admin: 08/22/16 06:39 Dose: 3 ml Amlodipine Besylate (Norvasc) 10 mg PO BEDTIME [facility] Enoxaparin Sodium (Lovenox) 30 mg SUBCUT DAILY [facility] Last Admin: 08/23/16 08:30 Dose: 30 mg Levofloxacin/Dextrose 500 mg/ (Premix) 100 mls @ 100 mls/hr IV ONETIME ONE Stop: 08/22/16 09:59 Last Admin: 08/22/16 09:03 Dose: 100 mls/hr Azithromycin 500 mg/ Sodium (Chloride) 250 mls @ 250 mls/hr IV ONETIME ONE Stop: 08/22/16 10:59 Last Admin: 08/22/16 11:02 Dose: 250 mls/hr Sodium Chloride (Normal Saline) 100 mls @ 3 mls/sec IV ONETIME ONE Stop: 08/22/16 18:01 Last Admin: 08/22/16 18:16 Dose: 3 mls/sec Iopamidol (Isovue-370 (76%)) 100 ml IV . DIRECTED [facility] Last Admin: 08/22/16 18:16 Dose: 100 ml Metoprolol Succinate (Toprol Xl) 100 mg PO BEDTIME [facility] Last Admin: 08/23/16 20:21 Dose: 100 mg Metoprolol Succinate (Toprol Xl) 100 mg PO DAILY [facility] Last Admin: 08/24/16 13:45 Dose: Not Given Metoprolol Succinate (Toprol Xl) 100 mg PO DAILY [facility] Last Admin: 08/24/16 20:52 Dose: 100 mg Metoprolol Tartrate (Lopressor) 100 mg PO BEDTIME [facility] Metoprolol Tartrate (Lopressor) 100 mg PO BEDTIME [facility] Last Admin: 08/23/16 03:11 Dose: Not Given Sodium Chloride (Saline Flush) 10 ml FLUSH ONETIME PRN PRN Reason: PER RADIOLOGY PROTOCOL Last Admin: 08/22/16 18:16 Dose: 10 ml *Q Meaningful Use (DIS) - VTE *Q VTE Criteria *Q: - Stroke *Q Stroke Criteria *Q: - AMI *Q AMI Criteria *Q:
--- NOTE | 2016-08-25 09:22 | CR ---
Chest 2V HISTORY: pneumonia COMPARISON: 08/22/2016 FINDINGS: Mild interstitial prominence is redemonstrated. Possible mild increase in infiltrates or a telectasis right lung base. There is mild cardiomegaly. Mild pleural thickening is redemonstrated bi laterally. There are old healed rib fractures. Remainder the exam is unchanged. IMPRESSION: Possible mild interval increase in infiltrates versus atelectasis right lower lobe. Mild cardiomegaly and mild diffuse interstitial prominence are noted. I cannot completely exclude early CHF or fluid overload. Recommend clinical correlation
[2016-08-25] MEDS: Azithromycin 500 MG in Sodium Chloride 0.9% 250 ML IV SCH (10:30)
[2016-08-25 11:23] VITALS: BP 126/64
[2016-08-25] MEDS ORDERED: Metoprolol Succinate 50 MG Tab.ER PO SCH (21:00)
--- NOTE | 2016-08-26 07:41 | ECHO ---
REFERRING PRACTITIONER: 1. AO ROOT: 3.35. (NL = 2.0-3.7) 2. AORTIC VALVE EXCURSION: 3. LA: 3.66 CM (NL = 1.9-4.0) 4. RV: 3.38. (NL = .09-2.6) 5. LV SALINAS: 6.47. (NL = 3.5-5.7) 6. LV SYST: 4.51. (NL = 2.2-4.3) 7. FRACTIONAL SHORTENIN. (2542) 8. EJECTION FRACTION: 55% to 60%. (5075) 9. IVS: 1.04 (NL = 0.6-1.1) 10. LVPW: 1.07 (NL = 0.6 1.1) INDICATIONS: Shortness of breath. By 2D echo, left ventricular function appears to be normal consistent with estimated ejection fraction of 55% to 60%. Overall, this study is of poor technical quality limiting available information and compromising interpretation. There are no specific wall motion abnormalities or pericardial effusion identified on this study. Grossly chamber sizes appear to be within normal range for size. The aortic valve leaflets appear to be structurally normal as is the mitral valve leaflets. Tricuspid valve appears to be structurally normal in appearance. Pulmonic valve was not well visualized. By Doppler and color Doppler, there is borderline elevation in estimated right ventricular pressure at 39 mmHg. There is trace tricuspid regurgitation. IMPRESSION: 1. This study is of poor technical quality limiting available information and compromising interpretation. 2. Grossly normal left ventricular function. Estimated ejection fraction of 55 % to 60%. 3. No significant chamber enlargement, was identified on this limited study. 4. Borderline elevation in estimated right ventricular pressure 39 mmHg. 5. Trace tricuspid regurgitation. /[id number] BARBER
== END 2016-08-25 12:50 | disposition home or self-care (01) | DRG 195 ==
LOC: JP.ED 06:00 → JP.MS 08:23
PROVIDERS: ADMIT Internal Medicine; ATTEND Internal Medicine
DX: J18.9 Pneumonia, unspecified organism (principal); R09.02 Hypoxemia; I10 Essential (primary) hypertension; E11.9 Type 2 diabetes mellitus without complications; L02.92 Furuncle, unspecified; E66.01 Morbid (severe) obesity due to excess calories; J44.9 Chronic obstructive pulmonary disease, unspecified; G47.33 Obstructive sleep apnea (adult) (pediatric); Z87.891 Personal history of nicotine dependence
CPT/HCPCS: 36415; 71020 ×2; 80048; 83880; 85025; 86713; 87040; 87070; 87205; 94640; 99284; 99285; J7620; 71275; 87278; 93306; 93306-26; 94060; 96365; 96372; A9270-GY; J0456; J1650; J1956; J7030; J7050; Q9967

== ENCOUNTER 2017-07-17 05:40 | Day surgery (SDC) | payer MEDICARE, BC ==
[2017-07-17] MEDS: Dextrose 5%-Lactated Ringers 1,000 ML IV SCH (06:33)
[2017-07-17] MEDS ORDERED: fentaNYL 100 MCG/2 ML SDV ONE (06:55)
[2017-07-17] MEDS ORDERED: Propofol 200 MG/20 ML SDV ONE ×2 (06:55→07:41)
[2017-07-17] MEDS ORDERED: Midazolam 1 MG/ML 2 ML SDV ONE (06:55)
[2017-07-17] MEDS: Levofloxacin/Dextrose 5%-Water 500 MG in Premix Bag 1 BAG IV ONE (07:14)
[2017-07-17] MEDS: Lidocaine 1% with EPINEPHrine 1:100,000 50 ML MDV ONE (07:36)
[2017-07-17] MEDS: Bupivacaine 0.5% 50 ML MDV ONE (07:36)
[2017-07-17 09:36] VITALS: BP 134/65
--- NOTE | 2017-07-30 15:09 | OR ---
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 OPERATIVE PROCEDURE: 1. Excision of probable infected epidermoid cyst, left inner thigh with layered closure (37224, [id number]). 2. Excision of probable infected epidermoid cyst of the lateral aspect of right upper thigh with layered closure ([id number], [id number]). 3. Excision of a probably infected epidermoid cyst, upper medial right thigh with layered closure ([id number], [id number]). ANESTHESIA: Local plus IV sedation. INDICATION FOR PROCEDURE: The patient was taken to the operating room, and after IV sedation was administered, the patient was placed in the lithotomy position. The areas of involvement were then prepped and draped. At each case, elliptical incisions were made around the lesions, and the lesion removed intact with a small margin of normal-appearing tissue, and in each case, the incision was closed with 3-0 and 4-0 Vicryl stitch deep and then a 5-0 Prolene skin stitch. In the left upper thigh, the lesion plus margin was 6.5 cm and the incision length 7.5 cm. The more lateral of the upper right thigh lesions had a incision plus margin length of 1.8 cm and incision length of 2 cm, and the more medial right upper thigh lesion had an incision and margin length of 9 cm and incision length of 9.5 cm. After closure of these, the dressing was applied. The patient was taken to the recovery room in satisfactory condition. Jone Leon MD /[id number]
== END 2017-07-17 09:50 | disposition home or self-care (01) ==
LOC: JP.SDS 05:40
PROVIDERS: ATTEND Surgery
DX: L72.0 Epidermal cyst (principal); L90.5 Scar conditions and fibrosis of skin; L02.415 Cutaneous abscess of right lower limb; E66.01 Morbid (severe) obesity due to excess calories
CPT/HCPCS: 11402; 11406; 12031; 12032; 12034; 88304; J1956; J2250; J2704; J3010; J7042

== ENCOUNTER 2018-07-16 09:21 | Observation (INO) | payer MEDICARE ==
[~2018-07-16 09:21] MED LIST: Acetaminophen 500 MG Tab PO ONE; Gabapentin 300 MG Cap PO ONE; Lactated Ringers 1,000 ML IV SCH; Midazolam 1 MG/ML 2 ML SDV ONE; Nozin Nasal Sanitizer NASBOTH SCH; Povidone-Iodine 10% Soln 118.25 ML Bottle ONE; Propofol 200 MG/20 ML SDV ONE; Scopolamine 1.5 MG Transdermal Patch TOP SCH; fentaNYL 100 MCG/2 ML SDV ONE
[2018-07-16] MEDS ORDERED: Acetaminophen 500 MG Tab PO ONE (09:45)
[2018-07-16] MEDS ORDERED: Scopolamine 1.5 MG Transdermal Patch TOP SCH (09:45)
[2018-07-16] MEDS ORDERED: Gabapentin 300 MG Cap PO ONE (09:45)
[2018-07-16] MEDS: Nozin Nasal Sanitizer NASBOTH SCH ×2 (09:48→20:27)
[2018-07-16] MEDS: Lactated Ringers 1,000 ML IV SCH ×2 (09:49→22:34)
[2018-07-16] MEDS ORDERED: Clindamycin Phosphate 900 MG in Sodium Chloride 0.9% 100 ML IV ONE (10:50)
[2018-07-16] MEDS ORDERED: Midazolam 1 MG/ML 2 ML SDV ONE (12:55)
[2018-07-16] MEDS ORDERED: Propofol 200 MG/20 ML SDV ONE ×2 (13:21→14:02)
[2018-07-16] MEDS ORDERED: Morphine 2 MG/ML Syringe IM ONE (15:30)
[2018-07-16] MEDS ORDERED: Acetaminophen 325 MG Tab PO PRN (15:50)
[2018-07-16] MEDS ORDERED: Acetaminophen/HYDROcodone 325-5 MG Tab PO PRN (15:50)
[2018-07-16] MEDS ORDERED: Albuterol/Ipratropium 3.0-0.5 MG/3 ML Neb Soln NEB PRN (15:55)
[2018-07-16] MEDS: Morphine 2 MG/ML Syringe IVPUSH PRN ×3 (16:25→19:45)
[2018-07-16] MEDS: Acetaminophen/oxyCODONE 325-5 MG Tab PO PRN (17:06)
[2018-07-16] MEDS: Metoprolol Tartrate 50 MG Tab*POM PO SCH (20:26)
[2018-07-16] MEDS: AMLODIPINE 10 MG PO SCH (20:26)
[2018-07-16] MEDS ORDERED: Non-Formulary Medication 1 Each (Metoprolol Succinate [Toprol Xl 100mg] 50 MG) PO SCH (21:00)
[2018-07-17] MEDS: Acetaminophen/oxyCODONE 325-5 MG Tab PO PRN ×5 (01:36→21:41)
[2018-07-17] MEDS: Furosemide 20 MG Tab*POM PO SCH (08:20)
[2018-07-17] MEDS: Metoprolol Tartrate 50 MG Tab*POM PO SCH ×2 (08:20→21:42)
[2018-07-17] MEDS: Nozin Nasal Sanitizer NASBOTH SCH ×2 (08:20→21:41)
[2018-07-17] MEDS: Enoxaparin 30 MG/0.3 ML Syringe SUBCUT SCH (08:21)
[2018-07-17] MEDS: Morphine 2 MG/ML Syringe IVPUSH PRN ×2 (08:44→19:43)
[2018-07-17] MEDS: AMLODIPINE 10 MG PO SCH (08:52)
--- NOTE | 2018-07-17 13:19 | PCM.SURGPN ---
- General Info Date of Service: 07/17/18 POD#: 1 Post-Op Diagnosis: S/P left total knee arthroplasty Functional Status: Reports: Tolerating Diet - Review of Systems General: Reports: No Symptoms HEENT: Reports: No Symptoms Pulmonary: Reports: No Symptoms Cardiovascular: Reports: No Symptoms Gastrointestinal: Reports: No Symptoms Neurological: Reports: No Symptoms Psychiatric: Reports: No Symptoms Systems Review Comment:: Poor pain control last night night, a bit better this am. Up in chair today, difficulty getting in and out of bed. - Patient Data Vitals - Most Recent: Last Vital Signs Temp 36.8 C 07/17/18 10:46 Pulse 60 07/17/18 10:46 Resp 16 07/17/18 10:46 BP 115/53 L 07/17/18 10:46 Pulse Ox 93 L 07/17/18 10:46 Weight - Most Recent: 165.516 kg I&O - Last 24 Hours: Intake & Output 07/16/18 07/17/18 07/17/18 22:59 06:59 14:59 Intake Total 1522 1868 Output Total 1015 600 Balance 507 1268 Lab Results Last 24 Hrs: Laboratory Results - last 24 hr 07/17/18 Range/Units 05:00 WBC 11.5 H (4.5-11.0) K/uL RBC 4.56 (4.30-5.90) M/uL Hgb 13.4 (12.0-15.0) g/dL Hct 42.1 (40.0-54.0) % MCV 92 (80-98) fL MCH 29 (27-31) pg MCHC 32 (32-36) % Plt Count 225 (150-400) K/uL Med Orders - Current: Current Medications Acetaminophen (Tylenol) 650 mg PO Q4H PRN PRN Reason: Pain/Fever Hydrocodone Bitart/Acetaminophen ([place] 325-5 Mg) 1 tab PO Q3H PRN PRN Reason: Pain (mild 1-3) Last Admin: 07/16/18 22:38 Dose: 1 tab Albuterol/Ipratropium (Duoneb 3.0-0.5 Mg/3 Ml) 3 ml NEB Q4H PRN PRN Reason: Shortness of Breath Amlodipine Besylate (Norvasc) 10 mg PO DAILY [facility] Last Admin: 07/17/18 08:52 Dose: 10 mg Bandage/Support Products ( Nasal Pumper Helper) 1 applic NASBOTH BID [facility] Last Admin: 07/17/18 08:20 Dose: 1 applic Enoxaparin Sodium (Lovenox) 30 mg SUBCUT DAILY [facility] Last Admin: 07/17/18 08:21 Dose: 30 mg Furosemide (Lasix) 20 mg PO DAILY [facility] Last Admin: 07/17/18 08:20 Dose: 20 mg Lactated Ringer's (Ringers, Lactated) 1,000 mls @ 75 mls/hr IV ASDIRECTED [facility] Last Admin: 07/16/18 22:34 Dose: 75 mls/hr Metoprolol Tartrate (Lopressor) 50 mg PO BID [facility] Last Admin: 07/17/18 08:20 Dose: 50 mg Morphine Sulfate (Morphine) 2 mg IVPUSH Q1H PRN PRN Reason: Pain (severe 7-10) Last Admin: 07/17/18 08:44 Dose: 2 mg Oxycodone/Acetaminophen (Percocet 325-5 Mg) 2 tab PO Q6H PRN PRN Reason: Pain (moderate 4-6) Last Admin: 07/17/18 07:02 Dose: 2 tab Oxycodone/Acetaminophen (Percocet 325-5 Mg) 0 tab PO Q4H PRN PRN Reason: Pain (severe 7-10) Scopolamine (Transderm-Scop) 1.5 mg TOP Q72H [facility] Stop: 07/18/18 06:16 Last Admin: 07/16/18 09:52 Dose: 1.5 mg Discontinued Medications Acetaminophen (Tylenol Extra Strength) 1,000 mg PO ONETIME ONE Stop: 07/16/18 06:16 Acetaminophen (Tylenol Extra Strength) 1,000 mg PO ONETIME ONE Stop: 07/16/18 09:46 Last Admin: 07/16/18 09:51 Dose: 1,000 mg Bandage/Support Products ( Nasal Pumper Helper) 1 applic NASBOTH BID [facility] Fentanyl (Sublimaze) Confirm Administered Dose 100 mcg .ROUTE .STK-MED ONE Stop: 07/16/18 08:23 Gabapentin (Neurontin) 300 mg PO ONETIME ONE Stop: 07/16/18 06:16 Gabapentin (Neurontin) 300 mg PO ONETIME ONE Stop: 07/16/18 09:46 Last Admin: 07/16/18 09:51 Dose: 300 mg Lactated Ringer's (Ringers, Lactated) 1,000 mls @ 75 mls/hr IV ASDIRECTED [facility] Clindamycin Phosphate 900 mg/ (Sodium Chloride) 106 mls @ 200 mls/hr IV ONETIME ONE Stop: 07/16/18 11:21 Last Admin: 07/16/18 19:41 Dose: Not Given Midazolam HCl (Versed 1 Mg/Ml) Confirm Administered Dose 2 mg .ROUTE .STK-MED ONE Stop: 07/16/18 08:23 Midazolam HCl (Versed 1 Mg/Ml) Confirm Administered Dose 2 mg .ROUTE .STK-MED ONE Stop: 07/16/18 12:56 Morphine Sulfate (Morphine) 2 mg IM ONETIME ONE Stop: 07/16/18 15:31 Last Admin: 07/16/18 15:24 Dose: 2 mg Povidone Iodine (Betadine 10% Soln) Confirm Administered Dose 1 ml .ROUTE .STK- MED ONE Stop: 07/16/18 06:55 Last Admin: 07/16/18 13:25 Dose: 50 ml Propofol (Diprivan 20 Ml) Confirm Administered Dose 200 mg .ROUTE .STK-MED ONE Stop: 07/16/18 08:23 Propofol (Diprivan 20 Ml) Confirm Administered Dose 200 mg .ROUTE .STK-MED ONE Stop: 07/16/18 13:22 Propofol (Diprivan 20 Ml) Confirm Administered Dose 200 mg .ROUTE .STK-MED ONE Stop: 07/16/18 14:03 Scopolamine (Transderm-Scop) 1.5 mg TOP Q72H [facility] Stop: 07/18/18 06:16 - Exam Wound/Incisions: Dressing Dry and Intact Quality Assessment: Supplemental Oxygen General: Alert, Oriented HEENT: Pupils Equal Neck: Supple Lungs: Clear to Auscultation, Normal Respiratory Effort Cardiovascular: Regular Rate, Regular Rhythm GI/Abdominal Exam: Normal Bowel Sounds, Soft, Non-Tender, No Organomegaly, No Distention, No Abnormal Bruit, No Mass, Pelvis Stable Skin: Warm, Dry, Intact Neurological: No New Focal Deficit Psy/Mental Status: Alert, Normal Affect, Normal Mood Physical Findings Comment:: Dressing ok. Moderate swelling. Neg Clover's. - Problem List & Annotations (1) Osteoarthritis of knees, bilateral SNOMED Code(s): 392447437 Code(s): M17.0 - BILATERAL PRIMARY OSTEOARTHRITIS OF KNEE Status: Acute Current Visit: Yes Qualifiers: Osteoarthritis type: primary Qualified Code(s): M17.0 - Bilateral primary osteoarthritis of knee (2) S/P total knee arthroplasty SNOMED Code(s): 1441880189700, 392301770, 9821144220075 Code(s): Z96.659 - PRESENCE OF UNSPECIFIED ARTIFICIAL KNEE JOINT Status: Acute Current Visit: Yes Qualifiers: Laterality: left Qualified Code(s): Z96.652 - Presence of left artificial knee joint - Problem List Review Problem List Initiated/Reviewed/Updated: Yes - My Orders Last 24 Hours: Active Orders 24 hr Category Date Time Status Patient Status [ADT] Routine ADT 07/16/18 15:50 Active Patient Status [ADT] Routine ADT 07/17/18 13:03 Ordered Ambulate [RC] PER UNIT ROUTINE Care 07/16/18 15:50 Active Antiembolic Devices [RC] .Routine Care 07/16/18 15:51 Active DC Ibrahim Catheter [Urinary Catheter Removal] [RC] Per Care 07/17/18 13:13 Ordered Unit Routine Head of Bed Elevation [RC] ASDIRECTED Care 07/16/18 15:50 Active Intake and Output [RC] PER UNIT ROUTINE Care 07/16/18 15:50 Active Neurovascular Check [RC] BID Care 07/16/18 15:50 Active Notify Provider Vital Signs [RC] ASDIRECTED Care 07/16/18 15:50 Active Oxygen Therapy [RC] PRN Care 07/16/18 15:50 Active Pneumonia Education [RC] UPON Care 07/16/18 15:50 Active Pulse Oximetry [RC] INTERMITTENT Care 07/16/18 15:50 Active RT Incentive Spirometry [RC] Q1HWA Care 07/16/18 15:50 Active Up to Chair [RC] QID Care 07/16/18 15:50 Active VTE/DVT Education [RC] Click to Edit Care 07/16/18 15:51 Active Vital Signs [RC] PER UNIT ROUTINE Care 07/16/18 15:50 Active Wound Care [RC] ASDIRECTED Care 07/16/18 15:50 Active Consult to Occupational Therapy [OT Evaluation and Cons 07/16/18 15:56 Active Treatment] [CONS] Routine PT Evaluation and Treatment [CONS] Routine Cons 07/16/18 15:50 Active Regular Diet [DIET] Diet 07/16/18 Dinner Active Knee 1V or 2V Lt [CR] Routine Exams 07/17/18 10:15 Taken Acetaminophen [Tylenol] Med 07/16/18 15:50 Active 650 mg PO Q4H PRN Acetaminophen/HYDROcodone [[place] 325-5 MG] Med 07/16/18 15:50 Active 1 tab PO Q3H PRN Acetaminophen/oxyCODONE [Percocet 325-5 MG] Med 07/16/18 15:57 Active 2 tab PO Q6H PRN Acetaminophen/oxyCODONE [Percocet 325-5 MG] Med 07/17/18 13:12 Ordered See Dose Instructions PO Q4H PRN Albuterol/Ipratropium [DuoNeb 3.0-0.5 MG/3 ML] Med 07/16/18 15:55 Active 3 ml NEB Q4H PRN Enoxaparin [Lovenox] Med 07/17/18 09:00 Active 30 mg SUBCUT DAILY Furosemide [Lasix] Med 07/17/18 09:00 Active 20 mg PO DAILY Metoprolol Tartrate [Lopressor] Med 07/16/18 21:00 Active 50 mg PO BID Morphine Med 07/16/18 15:58 Active 2 mg IVPUSH Q1H PRN amLODIPine [Norvasc] Med 07/17/18 09:00 Active 10 mg PO DAILY Antiembolic Hose [OM.PC] Per Unit Routine Oth 07/16/18 15:50 Ordered DME for Inpatients [OM.PC] Routine Oth 07/16/18 15:50 Ordered DVT/VTE Prophylaxis Reflex [OM.PC] Routine Oth 07/16/18 15:50 Ordered Ice Therapy [OM.PC] Per Unit Routine Oth 07/16/18 15:50 Ordered Oral Care [OM.PC] Routine Oth 07/16/18 15:50 Ordered Sequential Compression Device [OM.PC] Routine Oth 07/16/18 15:50 Ordered Weight bearing status [OM.PC] Routine Oth 07/16/18 15:50 Ordered Resuscitation Status Routine Resus Stat 07/16/18 15:50 Ordered Medication Orders Acetaminophen (Tylenol) 650 mg PO Q4H PRN PRN Reason: Pain/Fever Hydrocodone Bitart/Acetaminophen ([place] 325-5 Mg) 1 tab PO Q3H PRN PRN Reason: Pain (mild 1-3) Last Admin: 07/16/18 22:38 Dose: 1 tab Albuterol/Ipratropium (Duoneb 3.0-0.5 Mg/3 Ml) 3 ml NEB Q4H PRN PRN Reason: Shortness of Breath Amlodipine Besylate (Norvasc) 10 mg PO DAILY [facility] Last Admin: 07/17/18 08:52 Dose: 10 mg Admin: 07/16/18 20:26 Dose: 10 mg Bandage/Support Products ( Nasal Pumper Helper) 1 applic NASBOTH BID [facility] Last Admin: 07/17/18 08:20 Dose: 1 applic Admin: 07/16/18 20:27 Dose: 1 applic Admin: 07/16/18 09:48 Dose: 1 applic Enoxaparin Sodium (Lovenox) 30 mg SUBCUT DAILY [facility] Last Admin: 07/17/18 08:21 Dose: 30 mg Furosemide (Lasix) 20 mg PO DAILY [facility] Last Admin: 07/17/18 08:20 Dose: 20 mg Lactated Ringer's (Ringers, Lactated) 1,000 mls @ 75 mls/hr IV ASDIRECTED [facility] Last Admin: 07/16/18 22:34 Dose: 75 mls/hr Infusion: 07/16/18 22:34 Dose: 75 mls/hr Admin: 07/16/18 09:49 Dose: 75 mls/hr Metoprolol Tartrate (Lopressor) 50 mg PO BID [facility] Last Admin: 07/17/18 08:20 Dose: 50 mg Admin: 07/16/18 20:26 Dose: 50 mg Morphine Sulfate (Morphine) 2 mg IVPUSH Q1H PRN PRN Reason: Pain (severe 7-10) Last Admin: 07/17/18 08:44 Dose: 2 mg Admin: 07/16/18 19:45 Dose: 2 mg Admin: 07/16/18 18:20 Dose: 2 mg Admin: 07/16/18 16:25 Dose: 2 mg Oxycodone/Acetaminophen (Percocet 325-5 Mg) 2 tab PO Q6H PRN PRN Reason: Pain (moderate 4-6) Last Admin: 07/17/18 07:02 Dose: 2 tab Admin: 07/17/18 01:36 Dose: 2 tab Admin: 07/16/18 17:06 Dose: 2 tab Oxycodone/Acetaminophen (Percocet 325-5 Mg) 0 tab PO Q4H PRN PRN Reason: Pain (severe 7-10) Scopolamine (Transderm-Scop) 1.5 mg TOP Q72H [facility] Stop: 07/18/18 06:16 Last Admin: 07/16/18 09:52 Dose: 1.5 mg - Assessment Assessment (Free Text/Narrative):: Did OK this morning, up in chair but needs assist out of bed. - Plan Plan (Free Text/Narrative):: Saline lock IV, tolerating PO. Change dressing tomorrow. Adjust pain meds to allow better mobility. D/C Ibrahim. Continue PT/OT. Will likely need SNF.
[2018-07-18] MEDS: Lactated Ringers 1,000 ML IV SCH (00:20)
--- NOTE | 2018-07-18 01:18 | PCM.OPNOTE ---
- General Post-Op/Procedure Note Date of Surgery/Procedure: 07/16/18 Operative Procedure(s): Left total knee arthroplasty using [employer] components Findings: Severe end-stage OA left knee Pre Op Diagnosis: Osteoarthritis left knee Post-Op Diagnosis: Same Anesthesia Technique: Moderate Sedation, Spinal Primary Surgeon: Hira Hampton EBBj in mLs: 50 Complications: None Condition: Good Free Text/Narrative:: Intake & Output 07/17/18 07/17/18 07/18/18 14:59 22:59 06:59 Output Total 850 Balance -850 indications: Louis is a 62-year-old gentleman with a history of progressive bilateral knee pain. Left knee is currently much more severe than the right. He is limit n his mobility both in an outside the house. Examination shows varus deformity and x-rays confirm end-stage osteoarthritis with complete joint space collapse and varus deformity.he is admitted for left total knee arthroplasty. Procedure: After adequate anesthesia was obtained patient was placed supine with a tourniquet about the left upper thigh.Left leg is prepped and draped in a sterile fashion.Leg is exsanguinated and tourniquet inflated to 300 mg of mercury pressure. Longitudinal incision is made over the patella carried down through the subcutaneous tissues. A medial parapatellar approach Small effusion is present.Medial release is performed and the anterior horn of the meniscus is excised. Significant degenerative change noted throughout the knee particularly the medial femoral condyle. the patella is everted and posterior aspect of the patella resected with an oscillating saw. Large drill was used to enter the femoral canal. Intramedullary guide was placed. Distal cutting jig was secured with pins and the distal femoral cut was then made.The extra medullary tibial guide was then placed. This was aligned and pinned in place. Proximal tibia was then resected.The knee was extended and residual meniscus excised from medial and lateral joint. The knee was then flexed and sizing guide was used. Drill holes were made for the distal femoral cutting jig.Jig was tapped into position.The remaining femoral cuts were then made. the tibia was sized. Trial components were then placed with a 10 mm insert which provided excellent balance. Rotation of the tibial component was noted this was then pinned in place. Tibial preparation was then completed with the large drill and broach. rials were removed. The knee was then thoroughly irrigated with pulse lavage. Components were then cemented in place and excess cement was removed.Trial 10 mm spacer was again utilized knee was taken through range of motion and found to be very stable with full extension obtained. Patella tracked well with a 35 mm button. Trial spacer was removed and the finalpolyethylene was snapped into position. Knee was thoroughly irrigated. Capsule was then closed with #1 Ethibond in interrupted fashion. Knee was flexed to 125 with no significant tension on the repair. Skin was then closed with 2-0 Vicryl in a running 3-0 Monocryl. Steri-Strips were applied. A light compressive dressing was then placed. Patient tolerated the procedure very well there were no complications he was taken from [facility].
[2018-07-18] MEDS: Acetaminophen/oxyCODONE 325-5 MG Tab PO PRN ×5 (03:45→23:08)
[2018-07-18] MEDS: Metoprolol Tartrate 50 MG Tab*POM PO SCH (08:26)
[2018-07-18] MEDS: AMLODIPINE 10 MG PO SCH (08:27)
[2018-07-18] MEDS: Furosemide 20 MG Tab*POM PO SCH (08:28)
[2018-07-18] MEDS: Enoxaparin 30 MG/0.3 ML Syringe SUBCUT SCH (08:29)
[2018-07-18] MEDS: Nozin Nasal Sanitizer NASBOTH SCH ×2 (08:31→20:54)
--- NOTE | 2018-07-18 12:11 | CR ---
Knee 1V or 2V Lt CLINICAL HISTORY: Postop FINDINGS: Patient is status post the placement of a 3 component total knee arthroplasty. Components appear well seated Impression: Status post recent 3 component total left knee arthroplasty
--- NOTE | 2018-07-18 13:21 | PCM.SURGPN ---
- General Info Date of Service: 07/18/18 POD#: 2 Post-Op Diagnosis: S/P left total knee Admission Diagnosis/Problem: Osteoarthritis of both knees Functional Status: Reports: Tolerating Diet - Review of Systems General: Reports: No Symptoms HEENT: Reports: No Symptoms Pulmonary: Reports: No Symptoms Cardiovascular: Reports: No Symptoms Gastrointestinal: Reports: Constipation Skin: Reports: No Symptoms Neurological: Reports: No Symptoms Psychiatric: Reports: No Symptoms Systems Review Comment:: Up in chair, has not been walking far, mainly in room. pain a little better controlled, constipated. - Patient Data Vitals - Most Recent: Last Vital Signs Temp 36.8 C 07/18/18 11:34 Pulse 76 07/18/18 11:34 Resp 18 07/18/18 11:34 BP 120/66 07/18/18 11:34 Pulse Ox 90 L 07/18/18 11:34 Weight - Most Recent: 165.516 kg I&O - Last 24 Hours: Intake & Output 07/17/18 07/18/18 07/18/18 22:59 06:59 14:59 Output Total 850 350 Balance -850 -350 Med Orders - Current: Current Medications Acetaminophen (Tylenol) 650 mg PO Q4H PRN PRN Reason: Pain/Fever Hydrocodone Bitart/Acetaminophen ([place] 325-5 Mg) 1 tab PO Q3H PRN PRN Reason: Pain (mild 1-3) Last Admin: 07/16/18 22:38 Dose: 1 tab Albuterol/Ipratropium (Duoneb 3.0-0.5 Mg/3 Ml) 3 ml NEB Q4H PRN PRN Reason: Shortness of Breath Amlodipine Besylate (Norvasc) 10 mg PO DAILY [facility] Last Admin: 07/18/18 08:27 Dose: 10 mg Bandage/Support Products ( Nasal [employer]) 1 applic NASBOTH BID [facility] Last Admin: 07/18/18 08:31 Dose: 1 applic Enoxaparin Sodium (Lovenox) 30 mg SUBCUT DAILY [facility] Last Admin: 07/18/18 08:29 Dose: 30 mg Furosemide (Lasix) 20 mg PO DAILY [facility] Last Admin: 07/18/18 08:28 Dose: 20 mg Lactated Ringer's (Ringers, Lactated) 1,000 mls @ 75 mls/hr IV ASDIRECTED [facility] Last Admin: 07/18/18 00:20 Dose: 75 mls/hr Morphine Sulfate (Morphine) 2 mg IVPUSH Q1H PRN PRN Reason: Pain (severe 7-10) Last Admin: 07/17/18 19:43 Dose: 2 mg Oxycodone/Acetaminophen (Percocet 325-5 Mg) 1 - 2 tab PO Q4H PRN PRN Reason: Pain (severe 7-10) Last Admin: 07/18/18 12:21 Dose: 2 tab Discontinued Medications Acetaminophen (Tylenol Extra Strength) 1,000 mg PO ONETIME ONE Stop: 07/16/18 06:16 Acetaminophen (Tylenol Extra Strength) 1,000 mg PO ONETIME ONE Stop: 07/16/18 09:46 Last Admin: 07/16/18 09:51 Dose: 1,000 mg Bandage/Support Products ( Nasal [employer]) 1 applic NASBOTH BID [facility] Fentanyl (Sublimaze) Confirm Administered Dose 100 mcg .ROUTE .STK-MED ONE Stop: 07/16/18 08:23 Gabapentin (Neurontin) 300 mg PO ONETIME ONE Stop: 07/16/18 06:16 Gabapentin (Neurontin) 300 mg PO ONETIME ONE Stop: 07/16/18 09:46 Last Admin: 07/16/18 09:51 Dose: 300 mg Lactated Ringer's (Ringers, Lactated) 1,000 mls @ 75 mls/hr IV ASDIRECTED [facility] Clindamycin Phosphate 900 mg/ (Sodium Chloride) 106 mls @ 200 mls/hr IV ONETIME ONE Stop: 07/16/18 11:21 Last Admin: 07/16/18 19:41 Dose: Not Given Metoprolol Tartrate (Lopressor) 50 mg PO BID [facility] Last Admin: 07/18/18 08:26 Dose: 50 mg Midazolam HCl (Versed 1 Mg/Ml) Confirm Administered Dose 2 mg .ROUTE .STK-MED ONE Stop: 07/16/18 08:23 Midazolam HCl (Versed 1 Mg/Ml) Confirm Administered Dose 2 mg .ROUTE .STK-MED ONE Stop: 07/16/18 12:56 Morphine Sulfate (Morphine) 2 mg IM ONETIME ONE Stop: 07/16/18 15:31 Last Admin: 07/16/18 15:24 Dose: 2 mg Oxycodone/Acetaminophen (Percocet 325-5 Mg) 2 tab PO Q6H PRN PRN Reason: Pain (moderate 4-6) Last Admin: 07/17/18 13:29 Dose: 2 tab Povidone Iodine (Betadine 10% Soln) Confirm Administered Dose 1 ml .ROUTE .STK- MED ONE Stop: 07/16/18 06:55 Last Admin: 07/16/18 13:25 Dose: 50 ml Propofol (Diprivan 20 Ml) Confirm Administered Dose 200 mg .ROUTE .STK-MED ONE Stop: 07/16/18 08:23 Propofol (Diprivan 20 Ml) Confirm Administered Dose 200 mg .ROUTE .STK-MED ONE Stop: 07/16/18 13:22 Propofol (Diprivan 20 Ml) Confirm Administered Dose 200 mg .ROUTE .STK-MED ONE Stop: 07/16/18 14:03 Scopolamine (Transderm-Scop) 1.5 mg TOP Q72H [facility] Stop: 07/18/18 06:16 Scopolamine (Transderm-Scop) 1.5 mg TOP Q72H [facility] Stop: 07/18/18 06:16 Last Admin: 07/16/18 09:52 Dose: 1.5 mg - Exam Wound/Incisions: Dressing Dry and Intact, No Drainage General: Alert, Oriented Lungs: Clear to Auscultation, Normal Respiratory Effort Cardiovascular: Regular Rate, Regular Rhythm Skin: Warm, Dry, Intact Neurological: No New Focal Deficit Psy/Mental Status: Alert, Normal Affect, Normal Mood Physical Findings Comment:: Dressing removed, incision looks very good, no drainage, moderate swelling, has about 75-80 degrees of flexion in chair. - Problem List & Annotations (1) Osteoarthritis of knees, bilateral SNOMED Code(s): 884771299 Code(s): M17.0 - BILATERAL PRIMARY OSTEOARTHRITIS OF KNEE Status: Acute Current Visit: Yes Qualifiers: Osteoarthritis type: primary Qualified Code(s): M17.0 - Bilateral primary osteoarthritis of knee (2) S/P total knee arthroplasty SNOMED Code(s): 7486475031690, 361422165, 1943702285342 Code(s): Z96.659 - PRESENCE OF UNSPECIFIED ARTIFICIAL KNEE JOINT Status: Acute Current Visit: Yes Qualifiers: Laterality: left Qualified Code(s): Z96.652 - Presence of left artificial knee joint - Problem List Review Problem List Initiated/Reviewed/Updated: Yes - My Orders Last 24 Hours: Active Orders 24 hr Category Date Time Status Patient Status [ADT] Routine ADT 07/17/18 13:03 Active Acetaminophen/oxyCODONE [Percocet 325-5 MG] Med 07/17/18 13:12 Active 1 - 2 tab PO Q4H PRN Convert IV to Peripheral Lock [Convert IV to Saline Oth 07/18/18 10:56 Ordered Lock] [OM.PC] Routine Medication Orders Acetaminophen (Tylenol) 650 mg PO Q4H PRN PRN Reason: Pain/Fever Hydrocodone Bitart/Acetaminophen ([place] 325-5 Mg) 1 tab PO Q3H PRN PRN Reason: Pain (mild 1-3) Last Admin: 07/16/18 22:38 Dose: 1 tab Albuterol/Ipratropium (Duoneb 3.0-0.5 Mg/3 Ml) 3 ml NEB Q4H PRN PRN Reason: Shortness of Breath Amlodipine Besylate (Norvasc) 10 mg PO DAILY [facility] Last Admin: 07/18/18 08:27 Dose: 10 mg Admin: 07/17/18 08:52 Dose: 10 mg Admin: 07/16/18 20:26 Dose: 10 mg Bandage/Support Products ( Nasal [employer]) 1 applic NASBOTH BID [facility] Last Admin: 07/18/18 08:31 Dose: 1 applic Admin: 07/17/18 21:41 Dose: 1 applic Admin: 07/17/18 08:20 Dose: 1 applic Admin: 07/16/18 20:27 Dose: 1 applic Admin: 07/16/18 09:48 Dose: 1 applic Enoxaparin Sodium (Lovenox) 30 mg SUBCUT DAILY [facility] Last Admin: 07/18/18 08:29 Dose: 30 mg Admin: 07/17/18 08:21 Dose: 30 mg Furosemide (Lasix) 20 mg PO DAILY [facility] Last Admin: 07/18/18 08:28 Dose: 20 mg Admin: 07/17/18 08:20 Dose: 20 mg Lactated Ringer's (Ringers, Lactated) 1,000 mls @ 75 mls/hr IV ASDIRECTED [facility] Last Admin: 07/18/18 00:20 Dose: 75 mls/hr Infusion: 07/17/18 11:54 Dose: 75 mls/hr Admin: 07/16/18 22:34 Dose: 75 mls/hr Infusion: 07/16/18 22:34 Dose: 75 mls/hr Admin: 07/16/18 09:49 Dose: 75 mls/hr Morphine Sulfate (Morphine) 2 mg IVPUSH Q1H PRN PRN Reason: Pain (severe 7-10) Last Admin: 07/17/18 19:43 Dose: 2 mg Admin: 07/17/18 08:44 Dose: 2 mg Admin: 07/16/18 19:45 Dose: 2 mg Admin: 07/16/18 18:20 Dose: 2 mg Admin: 07/16/18 16:25 Dose: 2 mg Oxycodone/Acetaminophen (Percocet 325-5 Mg) 1 - 2 tab PO Q4H PRN PRN Reason: Pain (severe 7-10) Last Admin: 07/18/18 12:21 Dose: 2 tab Admin: 07/18/18 08:20 Dose: 2 tab Admin: 07/18/18 03:45 Dose: 2 tab Admin: 07/17/18 21:41 Dose: 2 tab Admin: 07/17/18 17:33 Dose: 2 tab - Assessment Assessment (Free Text/Narrative):: Poor mobility, working on better pain control but narcotics contributing to constipation. - Plan Plan (Free Text/Narrative):: Dressing changed, continue PT/OT, would greatly benefit form inpatient rehab. Right knee is also symptomatic and limiting his mobility as well, plan injection of right knee prior to discharge.
[2018-07-18] MEDS ORDERED: Docusate Sodium 100 MG Cap PO PRN (13:25)
[2018-07-18] MEDS ORDERED: Magnesium Hydroxide 400 MG/5 ML Susp 30 ML Cup PO PRN (13:25)
[2018-07-19] MEDS: AMLODIPINE 10 MG PO SCH ×2 (06:53→08:02)
[2018-07-19] MEDS: Furosemide 20 MG Tab*POM PO SCH ×2 (06:54→08:02)
[2018-07-19 06:55] VITALS: BP 158/70
[2018-07-19] MEDS: Acetaminophen/oxyCODONE 325-5 MG Tab PO PRN (07:02)
[2018-07-19] MEDS: Enoxaparin 30 MG/0.3 ML Syringe SUBCUT SCH (08:30)
[2018-07-19] MEDS: Nozin Nasal Sanitizer NASBOTH SCH (08:31)
== END 2018-07-19 10:41 ==
LOC: JP.SDS 09:21 → JP.MS 15:50 → JP.SDS 07-17 13:00 → JP.MS 07-17 13:03 → UNDOADMIN 07-17 13:03 → JP.MS 07-17 13:03 → JP.SDS 07-19 10:39 → JP.MS 07-19 10:39 → UNDODISIN 07-19 10:41
PROVIDERS: ADMIT Specialist; ATTEND Specialist
DX: M17.0 Bilateral primary osteoarthritis of knee (principal); M25.462 Effusion, left knee; M16.0 Bilateral primary osteoarthritis of hip; M19.012 Primary osteoarthritis, left shoulder; M19.011 Primary osteoarthritis, right shoulder; I10 Essential (primary) hypertension; E11.9 Type 2 diabetes mellitus without complications; J44.9 Chronic obstructive pulmonary disease, unspecified; E66.01 Morbid (severe) obesity due to excess calories; Z68.43 Body mass index [BMI] 50.0-59.9, adult; Z88.0 Allergy status to penicillin; Z91.013 Allergy to seafood; Z79.899 Other long term (current) drug therapy
CPT/HCPCS: 27447; 36415; 73560; 80048; 85027; 86850; 86900; 86901; 97110; 97162; 97165; 97530; 97535; A9270; C1713; C1776; J1650; J2250; J2270; J2704; J3010; J7120

== ENCOUNTER 2018-12-31 06:28 | Inpatient (IN) | payer MEDICARE ==
[2018-12-31] MEDS ORDERED: Povidone-Iodine 10% Soln 118.25 ML Bottle ONE (06:47)
[2018-12-31] MEDS ORDERED: Gabapentin 300 MG Cap PO ONE (07:00)
[2018-12-31] MEDS: Nozin Nasal Sanitizer NASBOTH SCH ×3 (07:03→20:28)
[2018-12-31] MEDS ORDERED: Albuterol/Ipratropium 3.0-0.5 MG/3 ML Neb Soln NEB ONE (07:11)
[2018-12-31] MEDS ORDERED: fentaNYL 100 MCG/2 ML SDV ONE ×2 (07:21→10:55)
[2018-12-31] MEDS ORDERED: Midazolam 1 MG/ML 2 ML SDV ONE ×2 (07:21→09:20)
[2018-12-31] MEDS ORDERED: Propofol 200 MG/20 ML SDV ONE ×6 (07:22→10:56)
[2018-12-31] MEDS ORDERED: Acetaminophen 500 MG Tab PO ONE (07:30)
[2018-12-31] MEDS ORDERED: Lactated Ringers 1,000 ML IV SCH (07:30)
[2018-12-31] MEDS ORDERED: Clindamycin Phosphate 900 MG in Sodium Chloride 0.9% 100 ML IV ONE (08:00)
[2018-12-31] MEDS ORDERED: Scopolamine 1.5 MG Transdermal Patch TOP ONE (08:00)
[2018-12-31] MEDS ORDERED: Tranexamic Acid 1,000 MG in Sodium Chloride 0.9% 50 ML IV ONE ×2 (08:30→12:00)
[2018-12-31] MEDS ORDERED: Lactated Ringers 1,000 ML ONE (09:57)
[2018-12-31] MEDS ORDERED: Tranexamic Acid 1,000 MG in Sodium Chloride 0.9% 50 ML IV PRN (11:00)
[2018-12-31] MEDS ORDERED: Magnesium Hydroxide 400 MG/5 ML Susp 30 ML Cup PO PRN (11:48)
[2018-12-31] MEDS ORDERED: Acetaminophen/HYDROcodone 325-5 MG Tab PO PRN (11:48)
[2018-12-31] MEDS ORDERED: Acetaminophen 325 MG Tab PO PRN (11:48)
[2018-12-31] MEDS ORDERED: Morphine 2 MG/ML Syringe IV ONE (11:52)
[2018-12-31] MEDS ORDERED: ceFAZolin 1 GM in Sodium Chloride 0.9% 50 ML IV SCH (12:00)
--- NOTE | 2018-12-31 12:07 | CR ---
Knee 1V or 2V Rt CLINICAL HISTORY: Postop total knee arthroplasty FINDINGS: AP and crosstable lateral views of the right knee show placement of a 3 component total knee arthroplasty. Components appear well seated. There is subcutaneous and intra-articular air Impression: Status post recent right knee arthroplasty
[2018-12-31] MEDS: Morphine 2 MG/ML Syringe IVPUSH PRN ×4 (12:34→15:42)
[2018-12-31] MEDS: Acetaminophen/oxyCODONE 325-5 MG Tab PO PRN ×3 (12:50→21:29)
[2018-12-31] MEDS: ceFAZolin 1 GM in Premix Bag 1 BAG IV SCH ×2 (13:45→21:29)
[2018-12-31] MEDS: VERIFY SCOP PATCH TOP SCH (14:33)
[2018-12-31] MEDS: HYDROmorphone 1 MG/ML Syringe IVPUSH PRN ×4 (16:43→23:43)
[2018-12-31] MEDS: Sodium Chloride 0.9% 1,000 ML IV SCH (17:12)
[2018-12-31] MEDS: Metoprolol Tartrate 25 MG Tab PO SCH (20:27)
[2018-12-31] MEDS ORDERED: Ondansetron 4 MG/2 ML SDV IVPUSH PRN (20:55)
[2018-12-31] MEDS: Docusate Sodium 100 MG Cap PO PRN (23:43)
[2019-01-01] MEDS: Sodium Chloride 0.9% 1,000 ML IV SCH ×2 (01:35→10:06)
[2019-01-01] MEDS: Acetaminophen/oxyCODONE 325-5 MG Tab PO PRN ×3 (01:52→11:18)
[2019-01-01] MEDS: ceFAZolin 1 GM in Premix Bag 1 BAG IV SCH (05:28)
[2019-01-01] MEDS: Albuterol/Ipratropium 3.0-0.5 MG/3 ML Neb Soln NEB PRN ×3 (06:52→22:48)
[2019-01-01] MEDS: HYDROmorphone 1 MG/ML Syringe IVPUSH PRN ×3 (07:05→22:36)
[2019-01-01] MEDS: Nozin Nasal Sanitizer NASBOTH SCH ×2 (08:13→20:23)
[2019-01-01] MEDS: amLODIPine 10 MG Tab PO SCH (08:13)
[2019-01-01] MEDS: Metoprolol Tartrate 25 MG Tab PO SCH ×2 (08:14→20:23)
[2019-01-01] MEDS: Enoxaparin 30 MG/0.3 ML Syringe SUBCUT SCH (08:14)
[2019-01-01] MEDS: Furosemide 20 MG Tab PO SCH (08:14)
[2019-01-01] MEDS: VERIFY SCOP PATCH TOP SCH (08:15)
--- NOTE | 2019-01-01 12:31 | PCM.SURGPN ---
- General Info Date of Service: 01/01/19 POD#: 1 Post-Op Diagnosis: S/P right total knee arthroplasty Functional Status: Reports: Tolerating Diet - Review of Systems General: Reports: No Symptoms HEENT: Reports: No Symptoms Pulmonary: Reports: No Symptoms Cardiovascular: Reports: No Symptoms Gastrointestinal: Reports: No Symptoms Genitourinary: Reports: No Symptoms Musculoskeletal: Reports: Leg Pain Skin: Reports: No Symptoms Neurological: Reports: No Symptoms Psychiatric: Reports: No Symptoms - Patient Data Vitals - Most Recent: Last Vital Signs Temp 36.9 C 01/01/19 11:20 Pulse 67 01/01/19 11:20 Resp 18 01/01/19 11:20 BP 125/55 L 01/01/19 11:20 Pulse Ox 90 L 01/01/19 11:20 Weight - Most Recent: 169.644 kg I&O - Last 24 Hours: Intake & Output 12/31/18 01/01/19 01/01/19 22:59 06:59 14:59 Intake Total 1217 1749 440 Output Total 475 800 Balance 742 949 440 Lab Results Last 24 Hrs: Laboratory Results - last 24 hr 01/01/19 Range/Units 05:15 WBC 14.2 H (4.5-11.0) K/uL RBC 4.60 (4.30-5.90) M/uL Hgb 13.7 D (12.0-15.0) g/dL Hct 43.7 (40.0-54.0) % MCV 95 (80-98) fL MCH 30 (27-31) pg MCHC 31 L (32-36) % Plt Count 238 (150-400) K/uL Med Orders - Current: Current Medications Acetaminophen (Tylenol) 650 mg PO Q4H PRN PRN Reason: Pain/Fever Hydrocodone Bitart/Acetaminophen ([place] 325-5 Mg) 1 tab PO Q3H PRN PRN Reason: Pain Albuterol/Ipratropium (Duoneb 3.0-0.5 Mg/3 Ml) 3 ml NEB Q4H PRN PRN Reason: Shortness of Breath Last Admin: 01/01/19 06:52 Dose: 3 ml Amlodipine Besylate (Norvasc) 10 mg PO DAILY [facility] Last Admin: 01/01/19 08:13 Dose: 10 mg Bandage/Support Products ( Nasal Plating Technician) 1 applic NASBOTH BID [facility] Last Admin: 01/01/19 08:13 Dose: 1 applic Docusate Sodium (Colace) 100 mg PO BID PRN PRN Reason: Constipation Last Admin: 12/31/18 23:43 Dose: 100 mg Enoxaparin Sodium (Lovenox) 30 mg SUBCUT DAILY [facility] Last Admin: 01/01/19 08:14 Dose: 30 mg Furosemide (Lasix) 20 mg PO DAILY [facility] Last Admin: 01/01/19 08:14 Dose: 20 mg Hydromorphone HCl (Dilaudid) 1 mg IVPUSH Q1H PRN PRN Reason: Breakthrough Pain Last Admin: 01/01/19 07:05 Dose: 1 mg Sodium Chloride (Normal Saline) 1,000 mls @ 125 mls/hr IV ASDIRECTED [facility] Last Admin: 01/01/19 10:06 Dose: 125 mls/hr Magnesium Hydroxide (Milk Of Magnesia) 30 ml PO BID PRN PRN Reason: Constipation Metoprolol Tartrate (Lopressor) 25 mg PO BID [facility] Last Admin: 01/01/19 08:14 Dose: 25 mg Verify Scop Patch 0 each TOP DAILY [facility] Last Admin: 01/01/19 08:15 Dose: Not Given Ondansetron HCl (Zofran) 4 mg IVPUSH Q6H PRN PRN Reason: Nausea/Vomiting Oxycodone/Acetaminophen (Percocet 325-5 Mg) 1 - 2 tab PO Q4H PRN PRN Reason: Pain Last Admin: 01/01/19 11:18 Dose: 2 tab Discontinued Medications Acetaminophen (Tylenol Extra Strength) 1,000 mg PO ONETIME ONE Stop: 12/31/18 07:31 Last Admin: 12/31/18 07:00 Dose: 1,000 mg Albuterol/Ipratropium (Duoneb 3.0-0.5 Mg/3 Ml) 3 ml NEB ONETIME ONE Stop: 12/31/18 07:12 Last Admin: 12/31/18 08:04 Dose: 3 ml Fentanyl (Sublimaze) Confirm Administered Dose 100 mcg .ROUTE .STK-MED ONE Stop: 12/31/18 07:22 Fentanyl (Sublimaze) Confirm Administered Dose 100 mcg .ROUTE .STK-MED ONE Stop: 12/31/18 10:56 Gabapentin (Neurontin) 300 mg PO ONETIME ONE Stop: 12/31/18 07:01 Last Admin: 12/31/18 06:59 Dose: 300 mg Clindamycin Phosphate 900 mg/ (Sodium Chloride) 106 mls @ 212 mls/hr IV ONETIME ONE Stop: 12/31/18 08:29 Last Admin: 12/31/18 09:39 Dose: 212 mls/hr Lactated Ringer's (Ringers, Lactated) 1,000 mls @ 75 mls/hr IV ASDIRECTED [facility] Last Admin: 12/31/18 07:54 Dose: 75 mls/hr Tranexamic Acid 1,000 mg/ (Sodium Chloride) 60 mls @ 240 mls/hr IV ONETIME ONE Stop: 12/31/18 08:44 Last Admin: 12/31/18 09:40 Dose: 240 mls/hr Tranexamic Acid 1,000 mg/ (Sodium Chloride) 60 mls @ 240 mls/hr IV ONETIME PRN PRN Reason: IF ORDERED BY SURGEON Stop: 12/31/18 11:01 Lactated Ringer's (Ringers, Lactated) Confirm Administered Dose 1,000 mls @ as directed .ROUTE .STK-MED ONE Stop: 12/31/18 09:58 Tranexamic Acid 1,000 mg/ (Sodium Chloride) 60 mls @ 240 mls/hr IV ONETIME ONE Stop: 12/31/18 12:14 Last Admin: 12/31/18 11:34 Dose: 240 mls/hr Cefazolin Sodium/Dextrose 1 gm (/ Premix) 50 mls @ 100 mls/hr IV Q8H [facility] Stop: 01/01/19 06:29 Last Admin: 01/01/19 05:28 Dose: 100 mls/hr Midazolam HCl (Versed 1 Mg/Ml) Confirm Administered Dose 2 mg .ROUTE .STK-MED ONE Stop: 12/31/18 07:22 Midazolam HCl (Versed 1 Mg/Ml) Confirm Administered Dose 2 mg .ROUTE .STK-MED ONE Stop: 12/31/18 09:21 Morphine Sulfate (Morphine) 2 mg IV ONETIME ONE Stop: 12/31/18 11:53 Last Admin: 12/31/18 11:57 Dose: 2 mg Morphine Sulfate (Morphine) 1 mg IVPUSH Q1H PRN PRN Reason: Breakthrough Pain Last Admin: 12/31/18 15:42 Dose: 1 mg Povidone Iodine (Betadine 10% Soln) Confirm Administered Dose 1 ml .ROUTE .STK- MED ONE Stop: 12/31/18 06:48 Last Admin: 12/31/18 09:52 Dose: 5 ml Propofol (Diprivan 20 Ml) Confirm Administered Dose 200 mg .ROUTE .STK-MED ONE Stop: 12/31/18 07:23 Propofol (Diprivan 20 Ml) Confirm Administered Dose 200 mg .ROUTE .STK-MED ONE Stop: 12/31/18 09:39 Propofol (Diprivan 20 Ml) Confirm Administered Dose 200 mg .ROUTE .STK-MED ONE Stop: 12/31/18 10:03 Propofol (Diprivan 20 Ml) Confirm Administered Dose 200 mg .ROUTE .STK-MED ONE Stop: 12/31/18 10:25 Propofol (Diprivan 20 Ml) Confirm Administered Dose 200 mg .ROUTE .STK-MED ONE Stop: 12/31/18 10:45 Propofol (Diprivan 20 Ml) Confirm Administered Dose 200 mg .ROUTE .STK-MED ONE Stop: 12/31/18 10:57 Scopolamine (Transderm-Scop) 1.5 mg TOP ONETIME ONE Stop: 12/31/18 08:01 Last Admin: 12/31/18 07:00 Dose: 1.5 mg - Exam Wound/Incisions: Dressing Dry and Intact General: Alert, Oriented HEENT: Pupils Equal Neck: Supple Lungs: Clear to Auscultation, Normal Respiratory Effort Cardiovascular: Regular Rate, Regular Rhythm GI/Abdominal Exam: Normal Bowel Sounds, Soft, Non-Tender, No Organomegaly, No Distention, No Abnormal Bruit, No Mass, Pelvis Stable Extremities: Leg Pain, Limited Range of Motion Skin: Warm, Dry, Intact Neurological: No New Focal Deficit Psy/Mental Status: Alert, Normal Affect, Normal Mood - Problem List & Annotations (1) Sleep apnea SNOMED Code(s): 69867383 Code(s): G47.30 - SLEEP APNEA, UNSPECIFIED Status: Acute Current Visit: Yes Qualifiers: Sleep apnea type: obstructive Qualified Code(s): G47.33 - Obstructive sleep apnea (adult) (pediatric) (2) Status post total right knee replacement SNOMED Code(s): 7899745469884, 7672442859181 Code(s): Z96.651 - PRESENCE OF RIGHT ARTIFICIAL KNEE JOINT Status: Acute Current Visit: Yes (3) Morbid obesity with BMI of 50.0-59.9, adult SNOMED Code(s): 994390598, 26852609699414 Code(s): E66.01 - MORBID (SEVERE) OBESITY DUE TO EXCESS CALORIES; Z68.43 - BODY MASS INDEX (BMI) 50-59.9, ADULT Status: Chronic Current Visit: No (4) Hypertension SNOMED Code(s): 69566032 Code(s): I10 - ESSENTIAL (PRIMARY) HYPERTENSION Status: Acute Current Visit: Yes Qualifiers: Hypertension type: essential hypertension Qualified Code(s): I10 - Essential (primary) hypertension - Problem List Review Problem List Initiated/Reviewed/Updated: Yes - My Orders Last 24 Hours: Active Orders 24 hr Category Date Time Status Admission Status [Patient Status] [ADT] Routine ADT 12/31/18 16:40 Active Patient Status [ADT] Routine ADT 12/31/18 11:48 Active Ambulate [RC] QID Care 12/31/18 11:48 Active Antiembolic Devices [RC] .Routine Care 12/31/18 11:48 Active Cooling Warming Measures [RC] ASDIRECTED Care 12/31/18 11:48 Active Head of Bed Elevation [RC] ASDIRECTED Care 12/31/18 11:48 Active Intake and Output [RC] QSHIFT Care 12/31/18 11:48 Active May Shower [RC] ASDIRECTED Care 12/31/18 11:48 Active Neurovascular Check [RC] Q4H Care 12/31/18 11:48 Active Overnight Pulse Oximetry [RC] Click to Edit Care 12/31/18 12:55 Active Oxygen Therapy [RC] PRN Care 12/31/18 11:48 Active RT Aerosol Therapy [RC] ASDIRECTED Care 01/01/19 06:37 Active RT Incentive Spirometry [RC] Q1HWA Care 12/31/18 11:48 Active Up to Chair [RC] QID Care 12/31/18 11:48 Active VTE/DVT Education [RC] Click to Edit Care 12/31/18 11:50 Active Vital Signs [RC] Q4H Care 12/31/18 11:48 Active Wound Care [RC] Q12H Care 12/31/18 11:48 Active Consult to Case Management/Lead Sql Developer [CONS] Cons 12/31/18 11:48 Active Routine Consult to Occupational Therapy [OT Evaluation and Cons 12/31/18 13:10 Active Treatment] [CONS] Routine PT Evaluation and Treatment [CONS] Routine Cons 12/31/18 11:48 Active Heart Healthy Diet [DIET] Diet 01/01/19 Breakfast Active Acetaminophen [Tylenol] Med 12/31/18 11:48 Active 650 mg PO Q4H PRN Acetaminophen/HYDROcodone [[place] 325-5 MG] Med 12/31/18 11:48 Active 1 tab PO Q3H PRN Acetaminophen/oxyCODONE [Percocet 325-5 MG] Med 12/31/18 11:48 Active 1 - 2 tab PO Q4H PRN Albuterol/Ipratropium [DuoNeb 3.0-0.5 MG/3 ML] Med 01/01/19 06:37 Active 3 ml NEB Q4H PRN Docusate Sodium [Colace] Med 12/31/18 11:48 Active 100 mg PO BID PRN Enoxaparin [Lovenox] Med 01/01/19 09:00 Active 30 mg SUBCUT DAILY Furosemide [Lasix] Med 01/01/19 09:00 Active 20 mg PO DAILY HYDROmorphone [Dilaudid] Med 12/31/18 15:49 Active 1 mg IVPUSH Q1H PRN Magnesium Hydroxide [Milk of Magnesia] Med 12/31/18 11:48 Active 30 ml PO BID PRN Metoprolol Tartrate [Lopressor] Med 12/31/18 21:00 Active 25 mg PO BID Non-Formulary Medication [NF Drug] Med 12/31/18 15:00 Active 0 each TOP DAILY Ondansetron [Zofran] Med 12/31/18 20:55 Active 4 mg IVPUSH Q6H PRN Sodium Chloride 0.9% [Normal Saline] 1,000 ml Med 12/31/18 12:00 Active IV ASDIRECTED amLODIPine [Norvasc] Med 01/01/19 09:00 Active 10 mg PO DAILY Antiembolic Hose [OM.PC] Routine Oth 12/31/18 11:48 Ordered DVT/VTE Prophylaxis Reflex [OM.PC] Routine Oth 12/31/18 11:48 Ordered Ice Therapy [OM.PC] Per Unit Routine Oth 12/31/18 11:48 Ordered Medication Continuation Instructions [OM.PC] Per Unit Oth 12/31/18 11:48 Ordered Routine Oral Care [OM.PC] Routine Oth 12/31/18 11:48 Ordered Pulse Oximetry Continuous Monitoring [OM.PC] Routine Oth 12/31/18 12:55 Ordered Sequential Compression Device [OM.PC] Routine Oth 12/31/18 11:48 Ordered Resuscitation Status Routine Resus Stat 12/31/18 11:48 Ordered Medication Orders Acetaminophen (Tylenol) 650 mg PO Q4H PRN PRN Reason: Pain/Fever Hydrocodone Bitart/Acetaminophen ([place] 325-5 Mg) 1 tab PO Q3H PRN PRN Reason: Pain Albuterol/Ipratropium (Duoneb 3.0-0.5 Mg/3 Ml) 3 ml NEB Q4H PRN PRN Reason: Shortness of Breath Last Admin: 01/01/19 06:52 Dose: 3 ml Amlodipine Besylate (Norvasc) 10 mg PO DAILY [facility] Last Admin: 01/01/19 08:13 Dose: 10 mg Bandage/Support Products ( Nasal Plating Technician) 1 applic NASBOTH BID [facility] Last Admin: 01/01/19 08:13 Dose: 1 applic Admin: 12/31/18 20:28 Dose: 1 applic Admin: 12/31/18 09:13 Dose: Not Given Admin: 12/31/18 07:03 Dose: 1 applic Docusate Sodium (Colace) 100 mg PO BID PRN PRN Reason: Constipation Last Admin: 12/31/18 23:43 Dose: 100 mg Enoxaparin Sodium (Lovenox) 30 mg SUBCUT DAILY [facility] Last Admin: 01/01/19 08:14 Dose: 30 mg Furosemide (Lasix) 20 mg PO DAILY [facility] Last Admin: 01/01/19 08:14 Dose: 20 mg Hydromorphone HCl (Dilaudid) 1 mg IVPUSH Q1H PRN PRN Reason: Breakthrough Pain Last Admin: 01/01/19 07:05 Dose: 1 mg Admin: 12/31/18 23:43 Dose: 1 mg Admin: 12/31/18 20:19 Dose: 1 mg Admin: 12/31/18 18:05 Dose: 1 mg Admin: 12/31/18 16:43 Dose: 1 mg Sodium Chloride (Normal Saline) 1,000 mls @ 125 mls/hr IV ASDIRECTED [facility] Last Admin: 01/01/19 10:06 Dose: 125 mls/hr Infusion: 01/01/19 09:35 Dose: 125 mls/hr Admin: 01/01/19 01:35 Dose: 125 mls/hr Infusion: 01/01/19 01:12 Dose: 125 mls/hr Admin: 12/31/18 17:12 Dose: 125 mls/hr Magnesium Hydroxide (Milk Of Magnesia) 30 ml PO BID PRN PRN Reason: Constipation Metoprolol Tartrate (Lopressor) 25 mg PO BID [facility] Last Admin: 01/01/19 08:14 Dose: 25 mg Admin: 12/31/18 20:27 Dose: 25 mg Verify Scop Patch 0 each TOP DAILY [facility] Last Admin: 01/01/19 08:15 Dose: Admin: 12/31/18 14:33 Dose: Ondansetron HCl (Zofran) 4 mg IVPUSH Q6H PRN PRN Reason: Nausea/Vomiting Oxycodone/Acetaminophen (Percocet 325-5 Mg) 1 - 2 tab PO Q4H PRN PRN Reason: Pain Last Admin: 01/01/19 11:18 Dose: 2 tab Admin: 01/01/19 05:27 Dose: 2 tab Admin: 01/01/19 01:52 Dose: 2 tab Admin: 12/31/18 21:29 Dose: 2 tab Admin: 12/31/18 17:10 Dose: 2 tab Admin: 12/31/18 12:50 Dose: 2 tab - Assessment Assessment (Free Text/Narrative):: Pain poorly controlled last night, better with switch from MS to Dilaudid, still using IV Dilaudid, has not been out of bed yet, Ibrahim in place - Plan Plan (Free Text/Narrative):: Continue IV pain meds for breakthru, up with PT this afternoon, Ibrahim out after up today, PT/OT to work with him, planning SNF on discharge.
--- NOTE | 2019-01-01 17:22 | PCM.PN ---
- General Info Date of Service: 01/01/19 Subjective Update: Louis has had increased shortness of breath and difficulty maintaining oxygen saturations throughout the day. Shortness of breath is only mild but it is worse than baseline. He is normally on 3 L and has required 4 L to keep saturations close to 90%. He does not have any chest pain. Did have a low-grade fever overnight. He has not been very active since surgery but is up in the chair this afternoon. Pain is fairly well-controlled at this time. Functional Status: Reports: Pain Controlled, Tolerating Diet - Review of Systems General: Denies: Fever Pulmonary: Reports: Shortness of Breath - Patient Data Vitals - Most Recent: Last Vital Signs Temp 36.1 C 01/01/19 15:43 Pulse 94 01/01/19 15:43 Resp 16 01/01/19 15:43 BP 168/72 H 01/01/19 15:43 Pulse Ox 90 L 01/01/19 15:43 Weight - Most Recent: 169.644 kg I&O - Last 24 Hours: Intake & Output 01/01/19 01/01/19 01/01/19 06:59 14:59 22:59 Intake Total 1749 440 500 Output Total 800 Balance 949 440 500 Lab Results Last 24 Hours: Laboratory Results - last 24 hr 01/01/19 Range/Units 05:15 WBC 14.2 H (4.5-11.0) K/uL RBC 4.60 (4.30-5.90) M/uL Hgb 13.7 D (12.0-15.0) g/dL Hct 43.7 (40.0-54.0) % MCV 95 (80-98) fL MCH 30 (27-31) pg MCHC 31 L (32-36) % Plt Count 238 (150-400) K/uL Med Orders - Current: Current Medications Acetaminophen (Tylenol) 650 mg PO Q4H PRN PRN Reason: Pain/Fever Hydrocodone Bitart/Acetaminophen ([place] 325-5 Mg) 1 tab PO Q3H PRN PRN Reason: Pain Albuterol/Ipratropium (Duoneb 3.0-0.5 Mg/3 Ml) 3 ml NEB Q4H PRN PRN Reason: Shortness of Breath Last Admin: 01/01/19 16:25 Dose: 3 ml Amlodipine Besylate (Norvasc) 10 mg PO DAILY [facility] Last Admin: 01/01/19 08:13 Dose: 10 mg Bandage/Support Products ( Nasal Alum Plant Operator) 1 applic NASBOTH BID [facility] Last Admin: 01/01/19 08:13 Dose: 1 applic Docusate Sodium (Colace) 100 mg PO BID PRN PRN Reason: Constipation Last Admin: 12/31/18 23:43 Dose: 100 mg Enoxaparin Sodium (Lovenox) 30 mg SUBCUT DAILY [facility] Last Admin: 01/01/19 08:14 Dose: 30 mg Furosemide (Lasix) 20 mg PO DAILY [facility] Last Admin: 01/01/19 08:14 Dose: 20 mg Furosemide (Lasix) 20 mg IVPUSH NOW ONE Stop: 01/01/19 17:20 Hydromorphone HCl (Dilaudid) 1 mg IVPUSH Q1H PRN PRN Reason: Breakthrough Pain Last Admin: 01/01/19 12:55 Dose: 1 mg Magnesium Hydroxide (Milk Of Magnesia) 30 ml PO BID PRN PRN Reason: Constipation Metoprolol Tartrate (Lopressor) 25 mg PO BID [facility] Last Admin: 01/01/19 08:14 Dose: 25 mg Verify Scop Patch 0 each TOP DAILY [facility] Last Admin: 01/01/19 08:15 Dose: Not Given Ondansetron HCl (Zofran) 4 mg IVPUSH Q6H PRN PRN Reason: Nausea/Vomiting Oxycodone/Acetaminophen (Percocet 325-5 Mg) 1 - 2 tab PO Q4H PRN PRN Reason: Pain Last Admin: 01/01/19 11:18 Dose: 2 tab Discontinued Medications Acetaminophen (Tylenol Extra Strength) 1,000 mg PO ONETIME ONE Stop: 12/31/18 07:31 Last Admin: 12/31/18 07:00 Dose: 1,000 mg Albuterol/Ipratropium (Duoneb 3.0-0.5 Mg/3 Ml) 3 ml NEB ONETIME ONE Stop: 12/31/18 07:12 Last Admin: 12/31/18 08:04 Dose: 3 ml Fentanyl (Sublimaze) Confirm Administered Dose 100 mcg .ROUTE .STK-MED ONE Stop: 12/31/18 07:22 Fentanyl (Sublimaze) Confirm Administered Dose 100 mcg .ROUTE .STK-MED ONE Stop: 12/31/18 10:56 Gabapentin (Neurontin) 300 mg PO ONETIME ONE Stop: 12/31/18 07:01 Last Admin: 12/31/18 06:59 Dose: 300 mg Clindamycin Phosphate 900 mg/ (Sodium Chloride) 106 mls @ 212 mls/hr IV ONETIME ONE Stop: 12/31/18 08:29 Last Admin: 12/31/18 09:39 Dose: 212 mls/hr Lactated Ringer's (Ringers, Lactated) 1,000 mls @ 75 mls/hr IV ASDIRECTED [facility] Last Admin: 12/31/18 07:54 Dose: 75 mls/hr Tranexamic Acid 1,000 mg/ (Sodium Chloride) 60 mls @ 240 mls/hr IV ONETIME ONE Stop: 12/31/18 08:44 Last Admin: 12/31/18 09:40 Dose: 240 mls/hr Tranexamic Acid 1,000 mg/ (Sodium Chloride) 60 mls @ 240 mls/hr IV ONETIME PRN PRN Reason: IF ORDERED BY SURGEON Stop: 12/31/18 11:01 Lactated Ringer's (Ringers, Lactated) Confirm Administered Dose 1,000 mls @ as directed .ROUTE .STK-MED ONE Stop: 12/31/18 09:58 Tranexamic Acid 1,000 mg/ (Sodium Chloride) 60 mls @ 240 mls/hr IV ONETIME ONE Stop: 12/31/18 12:14 Last Admin: 12/31/18 11:34 Dose: 240 mls/hr Sodium Chloride (Normal Saline) 1,000 mls @ 125 mls/hr IV ASDIRECTED [facility] Last Admin: 01/01/19 10:06 Dose: 125 mls/hr Cefazolin Sodium/Dextrose 1 gm (/ Premix) 50 mls @ 100 mls/hr IV Q8H [facility] Stop: 01/01/19 06:29 Last Admin: 01/01/19 05:28 Dose: 100 mls/hr Midazolam HCl (Versed 1 Mg/Ml) Confirm Administered Dose 2 mg .ROUTE .STK-MED ONE Stop: 12/31/18 07:22 Midazolam HCl (Versed 1 Mg/Ml) Confirm Administered Dose 2 mg .ROUTE .STK-MED ONE Stop: 12/31/18 09:21 Morphine Sulfate (Morphine) 2 mg IV ONETIME ONE Stop: 12/31/18 11:53 Last Admin: 12/31/18 11:57 Dose: 2 mg Morphine Sulfate (Morphine) 1 mg IVPUSH Q1H PRN PRN Reason: Breakthrough Pain Last Admin: 12/31/18 15:42 Dose: 1 mg Povidone Iodine (Betadine 10% Soln) Confirm Administered Dose 1 ml .ROUTE .STK- MED ONE Stop: 12/31/18 06:48 Last Admin: 12/31/18 09:52 Dose: 5 ml Propofol (Diprivan 20 Ml) Confirm Administered Dose 200 mg .ROUTE .STK-MED ONE Stop: 12/31/18 07:23 Propofol (Diprivan 20 Ml) Confirm Administered Dose 200 mg .ROUTE .STK-MED ONE Stop: 12/31/18 09:39 Propofol (Diprivan 20 Ml) Confirm Administered Dose 200 mg .ROUTE .STK-MED ONE Stop: 12/31/18 10:03 Propofol (Diprivan 20 Ml) Confirm Administered Dose 200 mg .ROUTE .STK-MED ONE Stop: 12/31/18 10:25 Propofol (Diprivan 20 Ml) Confirm Administered Dose 200 mg .ROUTE .STK-MED ONE Stop: 12/31/18 10:45 Propofol (Diprivan 20 Ml) Confirm Administered Dose 200 mg .ROUTE .STK-MED ONE Stop: 12/31/18 10:57 Scopolamine (Transderm-Scop) 1.5 mg TOP ONETIME ONE Stop: 12/31/18 08:01 Last Admin: 12/31/18 07:00 Dose: 1.5 mg - Exam Quality Assessment: Supplemental Oxygen General: Alert, Oriented, Cooperative, No Acute Distress Neck: JVD Lungs: Clear to Auscultation, Normal Respiratory Effort, Decreased Breath Sounds (mild at bases) Cardiovascular: Regular Rate, Regular Rhythm GI/Abdominal Exam: Soft, No Distention Extremities: No Pedal Edema, Other (right leg wrapped in renae ) Psy/Mental Status: Alert, Normal Affect - Problem List Review Problem List Initiated/Reviewed/Updated: Yes - My Orders Last 24 Hours: My Active Orders 01/01/19 16:57 CXR [Chest 1V Frontal] [CR] Routine 01/01/19 17:19 Furosemide [Lasix] 20 mg IVPUSH NOW ONE 01/02/19 05:00 BASIC METABOLIC PANEL,BMP [CHEM] Timed - Plan Plan:: ASSESSMENT AND PLAN - Hypoxia - chest x-ray suggested mild volume overload and he does have mild JVD. No crackles appreciated on pulmonary examination. Intake and output as charted suggest that he is up approximately 3 L. He did get his usual dose of furosemide this morning. -20 mg of furosemide IV this evening -Supplement oxygen with goal to keep saturations 90% or greater -Reassess volume status in the morning Status post right total knee arthroplasty - pain well-controlled. He did work with physical therapy this afternoon. -Postoperative care per orthopedic service Haroon Hawthorne M.D.
[2019-01-01] MEDS ORDERED: Furosemide 20 MG/2 ML VIAL IV ONE (17:30)
--- NOTE | 2019-01-01 17:39 | CRLCR ---
INDICATION: Hypoxia TECHNIQUE: Chest 1 view. COMPARISON: 08/25/2016 FINDINGS: Cardiovascular and mediastinum: Stable cardiomegaly.. Mediastinum is within normal limits. Lungs and pleural space: Lungs are clear. No sign of infiltrate or mass. No sign of pleural effusion. No pneumothorax. Bones and soft tissues: No significant findings. IMPRESSION: Stable cardiomegaly. Stable appearance of the chest compared to 08/25/2016. Dictated by Louis Springer MD @ 01/01/2019 5:38:29 PM Dictated by: Louis Springer MD @ 01/01/2019 17:38:35 (Electronically Signed)
[2019-01-02] MEDS ORDERED: Furosemide 40 MG/4 ML VIAL IVPUSH ONE (00:01)
[2019-01-02] MEDS ORDERED: Furosemide 100 MG/10 ML SDV ONE (00:15)
[2019-01-02] MEDS: Albuterol/Ipratropium 3.0-0.5 MG/3 ML Neb Soln NEB PRN (06:56)
[2019-01-02] MEDS: Acetaminophen/oxyCODONE 325-5 MG Tab PO PRN ×4 (08:31→23:38)
[2019-01-02] MEDS: Enoxaparin 30 MG/0.3 ML Syringe SUBCUT SCH (09:34)
[2019-01-02] MEDS: Furosemide 20 MG Tab PO SCH (09:34)
[2019-01-02] MEDS: Nozin Nasal Sanitizer NASBOTH SCH ×2 (09:34→21:25)
[2019-01-02] MEDS: Metoprolol Tartrate 25 MG Tab PO SCH ×2 (09:40→21:26)
[2019-01-02] MEDS: amLODIPine 10 MG Tab PO SCH (09:43)
[2019-01-02] MEDS: Docusate Sodium 100 MG Cap PO PRN (10:04)
[2019-01-02] MEDS: VERIFY SCOP PATCH TOP SCH (10:05)
--- NOTE | 2019-01-02 10:25 | PCM.PN ---
- General Info Date of Service: 01/02/19 Subjective Update: hypoxic much of the night despite attempts at diuresis. He did not have a good response to diuretics. Oxygenation slightly better as the day has gone on. Chest x-ray did not show infiltrate. Patient does not feel significantly short of breath but does get dyspneic with activity. No chest pain. He is doing better with his incentive spirometer today. Functional Status: Reports: Pain Controlled - Review of Systems General: Denies: Fever Pulmonary: Reports: Shortness of Breath - Patient Data Vitals - Most Recent: Last Vital Signs Temp 35.7 C 01/02/19 07:34 Pulse 100 01/02/19 09:40 Resp 16 01/02/19 07:34 BP 108/71 01/02/19 09:43 Pulse Ox 84 L 01/02/19 08:07 Weight - Most Recent: 169.644 kg I&O - Last 24 Hours: Intake & Output 01/01/19 01/02/19 01/02/19 22:59 06:59 14:59 Intake Total 1000 Output Total 900 Balance 1000 -900 Lab Results Last 24 Hours: Laboratory Results - last 24 hr 01/01/19 01/02/19 Range/Units 23:45 05:50 Puncture Site L radial ABG pH 7.310 L (7.350-7.450) ABG pCO2 63.3 H (35.0-42.0) mmHg ABG pO2 47.5 L (75.0-100.0) mmHg ABG HCO3 30.9 H (22.0-26.0) mmol/L ABG Total CO2 27.9 H (23.0-27.0) mmol/L ABG O2 Saturation 80.6 L (95.0-98.0) % ABG O2 Content 15.7 (15.0-23.0) %vol ABG Base Excess 3.2 mm/L ABG Hemoglobin 14.3 (13.5-18.0) g/dL ABG Oxyhemoglobin 78.7 % ABG Carboxyhemoglobin 1.9 H (0.0-1.6) % ABG Methemoglobin 0.5 % Arnie Test Ok O2 Delivery Device Cpap Oxygen Flow Rate 8 L Sodium 137 L (140-148) mmol/L Potassium 3.9 (3.6-5.2) mmol/L Chloride 99 L (100-108) mmol/L Carbon Dioxide 31 (21-32) mmol/L Anion Gap 10.9 (5.0-14.0) mmol/L BUN 10 (7-18) mg/dL Creatinine 0.8 (0.8-1.3) mg/dL Est Cr Clr Drug Dosing 85.86 mL/min Estimated GFR (MDRD) > 60 (>60) Glucose 160 H (74-106) mg/dL Calcium 8.7 (8.5-10.1) mg/dL Med Orders - Current: Current Medications Acetaminophen (Tylenol) 650 mg PO Q4H PRN PRN Reason: Pain/Fever Hydrocodone Bitart/Acetaminophen ([place] 325-5 Mg) 1 tab PO Q3H PRN PRN Reason: Pain Albuterol/Ipratropium (Duoneb 3.0-0.5 Mg/3 Ml) 3 ml NEB Q4H [facility] Amlodipine Besylate (Norvasc) 10 mg PO DAILY [facility] Last Admin: 01/02/19 09:43 Dose: 10 mg Bandage/Support Products ( Nasal Wet Inspector Optical Glass) 1 applic NASBOTH BID [facility] Last Admin: 01/02/19 09:34 Dose: 1 applic Docusate Sodium (Colace) 100 mg PO BID PRN PRN Reason: Constipation Last Admin: 01/02/19 10:04 Dose: 100 mg Enoxaparin Sodium (Lovenox) 30 mg SUBCUT DAILY [facility] Last Admin: 01/02/19 09:34 Dose: 30 mg Furosemide (Lasix) 20 mg PO DAILY [facility] Last Admin: 01/02/19 09:34 Dose: 20 mg Hydromorphone HCl (Dilaudid) 1 mg IVPUSH Q1H PRN PRN Reason: Breakthrough Pain Last Admin: 01/01/19 22:36 Dose: 1 mg Magnesium Hydroxide (Milk Of Magnesia) 30 ml PO BID PRN PRN Reason: Constipation Metoprolol Tartrate (Lopressor) 25 mg PO BID [facility] Last Admin: 01/02/19 09:40 Dose: 25 mg Verify Scop Patch 0 each TOP DAILY [facility] Last Admin: 01/02/19 10:05 Dose: Not Given Ondansetron HCl (Zofran) 4 mg IVPUSH Q6H PRN PRN Reason: Nausea/Vomiting Last Admin: 01/01/19 22:37 Dose: 4 mg Oxycodone/Acetaminophen (Percocet 325-5 Mg) 1 - 2 tab PO Q4H PRN PRN Reason: Pain Last Admin: 01/02/19 08:31 Dose: 2 tab Discontinued Medications Acetaminophen (Tylenol Extra Strength) 1,000 mg PO ONETIME ONE Stop: 12/31/18 07:31 Last Admin: 12/31/18 07:00 Dose: 1,000 mg Albuterol/Ipratropium (Duoneb 3.0-0.5 Mg/3 Ml) 3 ml NEB ONETIME ONE Stop: 12/31/18 07:12 Last Admin: 12/31/18 08:04 Dose: 3 ml Albuterol/Ipratropium (Duoneb 3.0-0.5 Mg/3 Ml) 3 ml NEB Q4H PRN PRN Reason: Shortness of Breath Last Admin: 01/02/19 06:56 Dose: 3 ml Fentanyl (Sublimaze) Confirm Administered Dose 100 mcg .ROUTE .STK-MED ONE Stop: 12/31/18 07:22 Fentanyl (Sublimaze) Confirm Administered Dose 100 mcg .ROUTE .STK-MED ONE Stop: 12/31/18 10:56 Furosemide (Lasix) 20 mg IV ONETIME ONE Stop: 01/01/19 17:31 Last Admin: 01/01/19 17:32 Dose: 20 mg Furosemide (Lasix) 60 mg IVPUSH ONETIME ONE Stop: 01/02/19 00:02 Last Admin: 01/02/19 00:23 Dose: 60 mg Furosemide (Lasix) Confirm Administered Dose 100 mg .ROUTE .STK-MED ONE Stop: 01/02/19 00:16 Last Admin: 01/02/19 00:22 Dose: Not Given Gabapentin (Neurontin) 300 mg PO ONETIME ONE Stop: 12/31/18 07:01 Last Admin: 12/31/18 06:59 Dose: 300 mg Clindamycin Phosphate 900 mg/ (Sodium Chloride) 106 mls @ 212 mls/hr IV ONETIME ONE Stop: 12/31/18 08:29 Last Admin: 12/31/18 09:39 Dose: 212 mls/hr Lactated Ringer's (Ringers, Lactated) 1,000 mls @ 75 mls/hr IV ASDIRECTED [facility] Last Admin: 12/31/18 07:54 Dose: 75 mls/hr Tranexamic Acid 1,000 mg/ (Sodium Chloride) 60 mls @ 240 mls/hr IV ONETIME ONE Stop: 12/31/18 08:44 Last Admin: 12/31/18 09:40 Dose: 240 mls/hr Tranexamic Acid 1,000 mg/ (Sodium Chloride) 60 mls @ 240 mls/hr IV ONETIME PRN PRN Reason: IF ORDERED BY SURGEON Stop: 12/31/18 11:01 Lactated Ringer's (Ringers, Lactated) Confirm Administered Dose 1,000 mls @ as directed .ROUTE .STK-MED ONE Stop: 12/31/18 09:58 Tranexamic Acid 1,000 mg/ (Sodium Chloride) 60 mls @ 240 mls/hr IV ONETIME ONE Stop: 12/31/18 12:14 Last Admin: 12/31/18 11:34 Dose: 240 mls/hr Sodium Chloride (Normal Saline) 1,000 mls @ 125 mls/hr IV ASDIRECTED [facility] Last Admin: 01/01/19 10:06 Dose: 125 mls/hr Cefazolin Sodium/Dextrose 1 gm (/ Premix) 50 mls @ 100 mls/hr IV Q8H [facility] Stop: 01/01/19 06:29 Last Admin: 01/01/19 05:28 Dose: 100 mls/hr Midazolam HCl (Versed 1 Mg/Ml) Confirm Administered Dose 2 mg .ROUTE .STK-MED ONE Stop: 12/31/18 07:22 Midazolam HCl (Versed 1 Mg/Ml) Confirm Administered Dose 2 mg .ROUTE .STK-MED ONE Stop: 12/31/18 09:21 Morphine Sulfate (Morphine) 2 mg IV ONETIME ONE Stop: 12/31/18 11:53 Last Admin: 12/31/18 11:57 Dose: 2 mg Morphine Sulfate (Morphine) 1 mg IVPUSH Q1H PRN PRN Reason: Breakthrough Pain Last Admin: 12/31/18 15:42 Dose: 1 mg Povidone Iodine (Betadine 10% Soln) Confirm Administered Dose 1 ml .ROUTE .STK- MED ONE Stop: 12/31/18 06:48 Last Admin: 12/31/18 09:52 Dose: 5 ml Propofol (Diprivan 20 Ml) Confirm Administered Dose 200 mg .ROUTE .STK-MED ONE Stop: 12/31/18 07:23 Propofol (Diprivan 20 Ml) Confirm Administered Dose 200 mg .ROUTE .STK-MED ONE Stop: 12/31/18 09:39 Propofol (Diprivan 20 Ml) Confirm Administered Dose 200 mg .ROUTE .STK-MED ONE Stop: 12/31/18 10:03 Propofol (Diprivan 20 Ml) Confirm Administered Dose 200 mg .ROUTE .STK-MED ONE Stop: 12/31/18 10:25 Propofol (Diprivan 20 Ml) Confirm Administered Dose 200 mg .ROUTE .STK-MED ONE Stop: 12/31/18 10:45 Propofol (Diprivan 20 Ml) Confirm Administered Dose 200 mg .ROUTE .STK-MED ONE Stop: 12/31/18 10:57 Scopolamine (Transderm-Scop) 1.5 mg TOP ONETIME ONE Stop: 12/31/18 08:01 Last Admin: 12/31/18 07:00 Dose: 1.5 mg - Exam Quality Assessment: Supplemental Oxygen General: Alert, Oriented, Cooperative, No Acute Distress Neck: JVD Lungs: Clear to Auscultation, Normal Respiratory Effort Cardiovascular: Regular Rate, Regular Rhythm, Gallops GI/Abdominal Exam: Soft, No Distention Extremities: No Pedal Edema, Other (right leg in ARYAN wrap ) Psy/Mental Status: Alert, Normal Affect - Problem List Review Problem List Initiated/Reviewed/Updated: Yes - My Orders Last 24 Hours: My Active Orders 01/02/19 10:23 Bumetanide [Bumex] 2 mg IVPUSH ONETIME ONE 01/03/19 05:00 BASIC METABOLIC PANEL,BMP [CHEM] Timed CBC W/O DIFF,HEMOGRAM [HEME] Timed (1) - Plan Plan:: ASSESSMENT AND PLAN - Hypoxia - chest x-ray suggested mild volume overload and he does have mild JVD. pulmonary exam benign. He has not responded well to diuretics but does seem to be slowly improving. -2 milligrams of bumetanide this morning -Supplement oxygen with goal to keep saturations 90% or greater -Reassess volume status in the morning -consider CT scan if not improving Obstructive sleep apnea - he has been using his CPap Status post right total knee arthroplasty - pain well-controlled. He has been working with physical therapy. -Postoperative care per orthopedic service Haroon Hawthorne M.D.
[2019-01-02] MEDS ORDERED: Bumetanide 1 MG/4 ML MDV IVPUSH ONE (10:30)
[2019-01-02] MEDS: Albuterol/Ipratropium 3.0-0.5 MG/3 ML Neb Soln NEB SCH ×4 (10:35→23:37)
--- NOTE | 2019-01-02 13:04 | PCM.SURGPN ---
- General Info Date of Service: 01/02/19 POD#: 2 Functional Status: Reports: Tolerating Diet, Urinating - Review of Systems General: Reports: No Symptoms HEENT: Reports: No Symptoms Pulmonary: Reports: Shortness of Breath Cardiovascular: Reports: No Symptoms Gastrointestinal: Reports: No Symptoms Genitourinary: Reports: No Symptoms Musculoskeletal: Reports: Leg Pain Skin: Reports: No Symptoms Neurological: Reports: No Symptoms Psychiatric: Reports: No Symptoms - Patient Data Vitals - Most Recent: Last Vital Signs Temp 36.2 C 01/02/19 11:01 Pulse 76 01/02/19 11:01 Resp 20 01/02/19 11:01 BP 132/65 01/02/19 11:01 Pulse Ox 86 L 01/02/19 11:01 Weight - Most Recent: 169.644 kg I&O - Last 24 Hours: Intake & Output 01/01/19 01/02/19 01/02/19 22:59 06:59 14:59 Intake Total 1000 Output Total 900 Balance 1000 -900 Lab Results Last 24 Hrs: Laboratory Results - last 24 hr 01/01/19 01/02/19 Range/Units 23:45 05:50 Puncture Site L radial ABG pH 7.310 L (7.350-7.450) ABG pCO2 63.3 H (35.0-42.0) mmHg ABG pO2 47.5 L (75.0-100.0) mmHg ABG HCO3 30.9 H (22.0-26.0) mmol/L ABG Total CO2 27.9 H (23.0-27.0) mmol/L ABG O2 Saturation 80.6 L (95.0-98.0) % ABG O2 Content 15.7 (15.0-23.0) %vol ABG Base Excess 3.2 mm/L ABG Hemoglobin 14.3 (13.5-18.0) g/dL ABG Oxyhemoglobin 78.7 % ABG Carboxyhemoglobin 1.9 H (0.0-1.6) % ABG Methemoglobin 0.5 % Arnie Test Ok O2 Delivery Device Cpap Oxygen Flow Rate 8 L Sodium 137 L (140-148) mmol/L Potassium 3.9 (3.6-5.2) mmol/L Chloride 99 L (100-108) mmol/L Carbon Dioxide 31 (21-32) mmol/L Anion Gap 10.9 (5.0-14.0) mmol/L BUN 10 (7-18) mg/dL Creatinine 0.8 (0.8-1.3) mg/dL Est Cr Clr Drug Dosing 85.86 mL/min Estimated GFR (MDRD) > 60 (>60) Glucose 160 H (74-106) mg/dL Calcium 8.7 (8.5-10.1) mg/dL Med Orders - Current: Current Medications Acetaminophen (Tylenol) 650 mg PO Q4H PRN PRN Reason: Pain/Fever Hydrocodone Bitart/Acetaminophen (Maybeury 325-5 Mg) 1 tab PO Q3H PRN PRN Reason: Pain Albuterol/Ipratropium (Duoneb 3.0-0.5 Mg/3 Ml) 3 ml NEB Q4H [facility] Last Admin: 01/02/19 10:35 Dose: 3 ml Amlodipine Besylate (Norvasc) 10 mg PO DAILY [facility] Last Admin: 01/02/19 09:43 Dose: 10 mg Bandage/Support Products ( Nasal Lab Animal Technician) 1 applic NASBOTH BID [facility] Last Admin: 01/02/19 09:34 Dose: 1 applic Docusate Sodium (Colace) 100 mg PO BID PRN PRN Reason: Constipation Last Admin: 01/02/19 10:04 Dose: 100 mg Enoxaparin Sodium (Lovenox) 30 mg SUBCUT DAILY [facility] Last Admin: 01/02/19 09:34 Dose: 30 mg Furosemide (Lasix) 20 mg PO DAILY [facility] Last Admin: 01/02/19 09:34 Dose: 20 mg Hydromorphone HCl (Dilaudid) 1 mg IVPUSH Q1H PRN PRN Reason: Breakthrough Pain Last Admin: 01/01/19 22:36 Dose: 1 mg Magnesium Hydroxide (Milk Of Magnesia) 30 ml PO BID PRN PRN Reason: Constipation Metoprolol Tartrate (Lopressor) 25 mg PO BID [facility] Last Admin: 01/02/19 09:40 Dose: 25 mg Verify Scop Patch 0 each TOP DAILY [facility] Last Admin: 01/02/19 10:05 Dose: Not Given Ondansetron HCl (Zofran) 4 mg IVPUSH Q6H PRN PRN Reason: Nausea/Vomiting Last Admin: 01/01/19 22:37 Dose: 4 mg Oxycodone/Acetaminophen (Percocet 325-5 Mg) 1 - 2 tab PO Q4H PRN PRN Reason: Pain Last Admin: 01/02/19 08:31 Dose: 2 tab Discontinued Medications Acetaminophen (Tylenol Extra Strength) 1,000 mg PO ONETIME ONE Stop: 12/31/18 07:31 Last Admin: 12/31/18 07:00 Dose: 1,000 mg Albuterol/Ipratropium (Duoneb 3.0-0.5 Mg/3 Ml) 3 ml NEB ONETIME ONE Stop: 12/31/18 07:12 Last Admin: 12/31/18 08:04 Dose: 3 ml Albuterol/Ipratropium (Duoneb 3.0-0.5 Mg/3 Ml) 3 ml NEB Q4H PRN PRN Reason: Shortness of Breath Last Admin: 01/02/19 06:56 Dose: 3 ml Bumetanide (Bumex) 2 mg IVPUSH ONETIME ONE Stop: 01/02/19 10:31 Last Admin: 01/02/19 10:59 Dose: 2 mg Fentanyl (Sublimaze) Confirm Administered Dose 100 mcg .ROUTE .STK-MED ONE Stop: 12/31/18 07:22 Fentanyl (Sublimaze) Confirm Administered Dose 100 mcg .ROUTE .STK-MED ONE Stop: 12/31/18 10:56 Furosemide (Lasix) 20 mg IV ONETIME ONE Stop: 01/01/19 17:31 Last Admin: 01/01/19 17:32 Dose: 20 mg Furosemide (Lasix) 60 mg IVPUSH ONETIME ONE Stop: 01/02/19 00:02 Last Admin: 01/02/19 00:23 Dose: 60 mg Furosemide (Lasix) Confirm Administered Dose 100 mg .ROUTE .STK-MED ONE Stop: 01/02/19 00:16 Last Admin: 01/02/19 00:22 Dose: Not Given Gabapentin (Neurontin) 300 mg PO ONETIME ONE Stop: 12/31/18 07:01 Last Admin: 12/31/18 06:59 Dose: 300 mg Clindamycin Phosphate 900 mg/ (Sodium Chloride) 106 mls @ 212 mls/hr IV ONETIME ONE Stop: 12/31/18 08:29 Last Admin: 12/31/18 09:39 Dose: 212 mls/hr Lactated Ringer's (Ringers, Lactated) 1,000 mls @ 75 mls/hr IV ASDIRECTED [facility] Last Admin: 12/31/18 07:54 Dose: 75 mls/hr Tranexamic Acid 1,000 mg/ (Sodium Chloride) 60 mls @ 240 mls/hr IV ONETIME ONE Stop: 12/31/18 08:44 Last Admin: 12/31/18 09:40 Dose: 240 mls/hr Tranexamic Acid 1,000 mg/ (Sodium Chloride) 60 mls @ 240 mls/hr IV ONETIME PRN PRN Reason: IF ORDERED BY SURGEON Stop: 12/31/18 11:01 Lactated Ringer's (Ringers, Lactated) Confirm Administered Dose 1,000 mls @ as directed .ROUTE .STK-MED ONE Stop: 12/31/18 09:58 Tranexamic Acid 1,000 mg/ (Sodium Chloride) 60 mls @ 240 mls/hr IV ONETIME ONE Stop: 12/31/18 12:14 Last Admin: 12/31/18 11:34 Dose: 240 mls/hr Sodium Chloride (Normal Saline) 1,000 mls @ 125 mls/hr IV ASDIRECTED [facility] Last Admin: 01/01/19 10:06 Dose: 125 mls/hr Cefazolin Sodium/Dextrose 1 gm (/ Premix) 50 mls @ 100 mls/hr IV Q8H [facility] Stop: 01/01/19 06:29 Last Admin: 01/01/19 05:28 Dose: 100 mls/hr Midazolam HCl (Versed 1 Mg/Ml) Confirm Administered Dose 2 mg .ROUTE .STK-MED ONE Stop: 12/31/18 07:22 Midazolam HCl (Versed 1 Mg/Ml) Confirm Administered Dose 2 mg .ROUTE .STK-MED ONE Stop: 12/31/18 09:21 Morphine Sulfate (Morphine) 2 mg IV ONETIME ONE Stop: 12/31/18 11:53 Last Admin: 12/31/18 11:57 Dose: 2 mg Morphine Sulfate (Morphine) 1 mg IVPUSH Q1H PRN PRN Reason: Breakthrough Pain Last Admin: 12/31/18 15:42 Dose: 1 mg Povidone Iodine (Betadine 10% Soln) Confirm Administered Dose 1 ml .ROUTE .STK- MED ONE Stop: 12/31/18 06:48 Last Admin: 12/31/18 09:52 Dose: 5 ml Propofol (Diprivan 20 Ml) Confirm Administered Dose 200 mg .ROUTE .STK-MED ONE Stop: 12/31/18 07:23 Propofol (Diprivan 20 Ml) Confirm Administered Dose 200 mg .ROUTE .STK-MED ONE Stop: 12/31/18 09:39 Propofol (Diprivan 20 Ml) Confirm Administered Dose 200 mg .ROUTE .STK-MED ONE Stop: 12/31/18 10:03 Propofol (Diprivan 20 Ml) Confirm Administered Dose 200 mg .ROUTE .STK-MED ONE Stop: 12/31/18 10:25 Propofol (Diprivan 20 Ml) Confirm Administered Dose 200 mg .ROUTE .STK-MED ONE Stop: 12/31/18 10:45 Propofol (Diprivan 20 Ml) Confirm Administered Dose 200 mg .ROUTE .STK-MED ONE Stop: 12/31/18 10:57 Scopolamine (Transderm-Scop) 1.5 mg TOP ONETIME ONE Stop: 12/31/18 08:01 Last Admin: 12/31/18 07:00 Dose: 1.5 mg - Exam Wound/Incisions: Healing Well, No Drainage Quality Assessment: Supplemental Oxygen General: Alert, Oriented HEENT: Pupils Equal Neck: Supple Lungs: Decreased Breath Sounds Cardiovascular: Regular Rate, Regular Rhythm GI/Abdominal Exam: Normal Bowel Sounds, Soft, Non-Tender, No Distention Extremities: Limited Range of Motion Skin: Warm, Dry, Intact Neurological: No New Focal Deficit Psy/Mental Status: Alert, Normal Affect, Normal Mood - Problem List & Annotations (1) Sleep apnea SNOMED Code(s): 82398715 Code(s): G47.30 - SLEEP APNEA, UNSPECIFIED Status: Acute Current Visit: Yes Qualifiers: Sleep apnea type: obstructive Qualified Code(s): G47.33 - Obstructive sleep apnea (adult) (pediatric) (2) Status post total right knee replacement SNOMED Code(s): 1249456473945, 4541275630530 Code(s): Z96.651 - PRESENCE OF RIGHT ARTIFICIAL KNEE JOINT Status: Acute Current Visit: Yes (3) Morbid obesity with BMI of 50.0-59.9, adult SNOMED Code(s): 191843624, 65215101164939 Code(s): E66.01 - MORBID (SEVERE) OBESITY DUE TO EXCESS CALORIES; Z68.43 - BODY MASS INDEX (BMI) 50-59.9, ADULT Status: Chronic Current Visit: No (4) Hypertension SNOMED Code(s): 71077853 Code(s): I10 - ESSENTIAL (PRIMARY) HYPERTENSION Status: Acute Current Visit: Yes Qualifiers: Hypertension type: essential hypertension Qualified Code(s): I10 - Essential (primary) hypertension (5) Hypoxia SNOMED Code(s): 157438123 Code(s): R09.02 - HYPOXEMIA Status: Acute Current Visit: Yes - Problem List Review Problem List Initiated/Reviewed/Updated: Yes - My Orders Last 24 Hours: Active Orders 24 hr Category Date Time Status Notify Provider Consults [RC] ASDIRECTED Care 01/01/19 16:56 Active Remove Ibrahim Catheter [Urinary Catheter Removal] [RC] Care 01/01/19 12:33 Active Per Unit Routine Consult to Physician [CONS] Routine Cons 01/01/19 16:54 Ordered BASIC METABOLIC PANEL,BMP [CHEM] Timed Lab 01/03/19 05:00 Ordered CBC W/O DIFF,HEMOGRAM [HEME] Timed (1) Lab 01/03/19 05:00 Ordered Albuterol/Ipratropium [DuoNeb 3.0-0.5 MG/3 ML] Med 01/02/19 11:00 Active 3 ml NEB Q4H Convert IV to Saline Lock [OM.PC] Routine Oth 01/01/19 12:33 Ordered Medication Orders Acetaminophen (Tylenol) 650 mg PO Q4H PRN PRN Reason: Pain/Fever Hydrocodone Bitart/Acetaminophen (Maybeury 325-5 Mg) 1 tab PO Q3H PRN PRN Reason: Pain Albuterol/Ipratropium (Duoneb 3.0-0.5 Mg/3 Ml) 3 ml NEB Q4H [facility] Last Admin: 01/02/19 10:35 Dose: 3 ml Amlodipine Besylate (Norvasc) 10 mg PO DAILY [facility] Last Admin: 01/02/19 09:43 Dose: 10 mg Admin: 01/01/19 08:13 Dose: 10 mg Bandage/Support Products ( Nasal Lab Animal Technician) 1 applic NASBOTH BID [facility] Last Admin: 01/02/19 09:34 Dose: 1 applic Admin: 01/01/19 20:23 Dose: 1 applic Admin: 01/01/19 08:13 Dose: 1 applic Admin: 12/31/18 20:28 Dose: 1 applic Admin: 12/31/18 09:13 Dose: Not Given Admin: 12/31/18 07:03 Dose: 1 applic Docusate Sodium (Colace) 100 mg PO BID PRN PRN Reason: Constipation Last Admin: 01/02/19 10:04 Dose: 100 mg Admin: 12/31/18 23:43 Dose: 100 mg Enoxaparin Sodium (Lovenox) 30 mg SUBCUT DAILY [facility] Last Admin: 01/02/19 09:34 Dose: 30 mg Admin: 01/01/19 08:14 Dose: 30 mg Furosemide (Lasix) 20 mg PO DAILY [facility] Last Admin: 01/02/19 09:34 Dose: 20 mg Admin: 01/01/19 08:14 Dose: 20 mg Hydromorphone HCl (Dilaudid) 1 mg IVPUSH Q1H PRN PRN Reason: Breakthrough Pain Last Admin: 01/01/19 22:36 Dose: 1 mg Admin: 01/01/19 12:55 Dose: 1 mg Admin: 01/01/19 07:05 Dose: 1 mg Admin: 12/31/18 23:43 Dose: 1 mg Admin: 12/31/18 20:19 Dose: 1 mg Admin: 12/31/18 18:05 Dose: 1 mg Admin: 12/31/18 16:43 Dose: 1 mg Magnesium Hydroxide (Milk Of Magnesia) 30 ml PO BID PRN PRN Reason: Constipation Metoprolol Tartrate (Lopressor) 25 mg PO BID [facility] Last Admin: 01/02/19 09:40 Dose: 25 mg Admin: 01/01/19 20:23 Dose: 25 mg Admin: 01/01/19 08:14 Dose: 25 mg Admin: 12/31/18 20:27 Dose: 25 mg Verify Scop Patch 0 each TOP DAILY [facility] Last Admin: 01/02/19 10:05 Dose: Admin: 01/01/19 08:15 Dose: Admin: 12/31/18 14:33 Dose: Ondansetron HCl (Zofran) 4 mg IVPUSH Q6H PRN PRN Reason: Nausea/Vomiting Last Admin: 01/01/19 22:37 Dose: 4 mg Oxycodone/Acetaminophen (Percocet 325-5 Mg) 1 - 2 tab PO Q4H PRN PRN Reason: Pain Last Admin: 01/02/19 08:31 Dose: 2 tab Admin: 01/01/19 11:18 Dose: 2 tab Admin: 01/01/19 05:27 Dose: 2 tab Admin: 01/01/19 01:52 Dose: 2 tab Admin: 12/31/18 21:29 Dose: 2 tab Admin: 12/31/18 17:10 Dose: 2 tab Admin: 12/31/18 12:50 Dose: 2 tab - Assessment Assessment (Free Text/Narrative):: Difficulty maintaining O2 sats, received two extra doses of Lasix, on supplemental O2 and using CPAP, has not been able to ambulate outside of room yet, dressings removed and incision looks good - Plan Plan (Free Text/Narrative):: Appreciate help from Dr. Hawthorne, continue to treat hypoxia per his recommendations. OT/PT as tolerated. Pt is trying to reduce pain meds to minimize respiratory depression. Still plan SNF when more stable.
--- NOTE | 2019-01-02 20:08 | OR ---
DATE OF PROCEDURE: 12/31/2018 SURGEON: Hira Hampton MD PREOPERATIVE DIAGNOSIS: End-stage osteoarthritis, right knee. POSTOPERATIVE DIAGNOSIS: End-stage osteoarthritis, right knee. PROCEDURE: Right total knee arthroplasty utilizing [employer] Person[employer] components. ANESTHESIA: Spinal with sedation. INDICATIONS: Louis is a 63-year-old gentleman with a history of end-stage osteoarthritis of both knees. He had previously undergone left total knee arthroplasty earlier this year and had done well with that. Now having progressive pain in the right knee. He presents for right total knee arthroplasty. Risks, benefits, potential complications of the procedure were discussed. DESCRIPTION OF PROCEDURE: After adequate anesthesia was obtained, the patient was placed supine with a tourniquet about the right upper thigh. Right leg was prepped and draped in a sterile fashion. Leg was exsanguinated and tourniquet inflated to 300 mmHg pressure. A longitudinal incision was made over the anterior aspect of the knee and carried down to the subcutaneous tissues. Medial parapatellar arthrotomy was performed. Moderate effusion was present. Severe degenerative changes noted throughout the knee, particularly at the medial compartment. Soft tissues cleared from the rim of the patella and the posterior aspect of the patella was then resected with an oscillating saw. Attention turned to the femur. Intramedullary canal of the femur was entered with the drill and intramedullary guide was placed. Distal cutting guide was secured and distal femoral cut was then made. Attention turned next to the tibia. Extramedullary tibial alignment jig was utilized. This was aligned and secured. Proximal tibia was then resected. Remaining meniscus excised. Attention returned to the femur which was sized and two drill holes placed for the cutting jig. The cutting jig was then tapped into position and anterior, posterior, and chamfer cuts were then made. Femoral trial was placed and centered on the distal femur and an intercondylar notch cut was made for a posterior cruciate sacrificing component. Once the femoral trial was in place, it was determined that the gap was insufficient and four additional millimeters was resected from the proximal tibia. The tibia was sized and a trial insert was placed. It was taken through range of motion and found to be very stable with full extension. Position of the tibial tray was set with the small pin and the trial articular surface and femur were removed. Tibial preparation was completed with a reamer and punch. This was then removed. The knee was thoroughly irrigated with pulse lavage. The patella was drilled for the patellar component. This was irrigated as well. Components were then cemented in place after drying the bone surfaces. Excess cement was removed and the knee was held in full extension with a trial tibial spacer. It was then taken through range of motion and found to be stable with full extension with the trial. The trial was removed and the final polyethylene was then snapped into position. The knee was irrigated once again with pulse lavage. This was followed by irrigation with a dilute Betadine solution, which was continued for approximately 2-1/2 minutes and then irrigated with pulse lavage once more. The knee was then closed with two #2 Ethibond in interrupted fashion along the arthrotomy and skin was closed with 2-0 Vicryl and a running 3-0 Monocryl. Steri-Strips were applied. Sterile dressing was then placed. The patient tolerated the procedure very well. There were no complications. Taken from the operating room in stable condition. Hira Hampton MD /[id number]
[2019-01-03] MEDS: Albuterol/Ipratropium 3.0-0.5 MG/3 ML Neb Soln NEB SCH ×6 (03:45→22:08)
[2019-01-03] MEDS: Acetaminophen/oxyCODONE 325-5 MG Tab PO PRN ×5 (03:46→22:08)
[2019-01-03] MEDS: Nozin Nasal Sanitizer NASBOTH SCH ×2 (09:17→20:12)
[2019-01-03] MEDS: Furosemide 20 MG Tab PO SCH (09:18)
[2019-01-03] MEDS: amLODIPine 10 MG Tab PO SCH (09:18)
[2019-01-03] MEDS: Enoxaparin 30 MG/0.3 ML Syringe SUBCUT SCH (09:18)
[2019-01-03] MEDS: Metoprolol Tartrate 25 MG Tab PO SCH ×2 (09:19→20:12)
[2019-01-03] MEDS: VERIFY SCOP PATCH TOP SCH (09:19)
[2019-01-03] MEDS ORDERED: Potassium Chloride 20 MEQ Tab.ER PO ONE (09:30)
--- NOTE | 2019-01-03 12:16 | PCM.PN ---
- General Info Date of Service: 01/03/19 Subjective Update: No acute events overnight. Knee pain has been fairly well-controlled. Oxygenation has been stable with about 5-6 L of supplemental oxygen. He gets short of breath with activity but is comfortable at rest. No fevers. No cough. Functional Status: Reports: Pain Controlled, Tolerating Diet - Review of Systems General: Reports: Weakness Cardiovascular: Reports: Dyspnea on Exertion - Patient Data Vitals - Most Recent: Last Vital Signs Temp 35 C L 01/03/19 11:23 Pulse 82 01/03/19 11:23 Resp 16 01/03/19 11:23 BP 127/66 01/03/19 11:23 Pulse Ox 90 L 01/03/19 11:23 Weight - Most Recent: 169.644 kg I&O - Last 24 Hours: Intake & Output 01/02/19 01/03/19 01/03/19 22:59 06:59 14:59 Intake Total 400 700 260 Output Total 360 575 200 Balance 40 125 60 Lab Results Last 24 Hours: Laboratory Results - last 24 hr 01/03/19 01/03/19 Range/Units 05:22 05:22 WBC 7.4 (4.5-11.0) K/uL RBC 4.53 (4.30-5.90) M/uL Hgb 13.5 (12.0-15.0) g/dL Hct 43.0 (40.0-54.0) % MCV 95 (80-98) fL MCH 30 (27-31) pg MCHC 31 L (32-36) % Plt Count 118 L (150-400) K/uL Sodium 136 L (140-148) mmol/L Potassium 3.6 (3.6-5.2) mmol/L Chloride 99 L (100-108) mmol/L Carbon Dioxide 30 (21-32) mmol/L Anion Gap 10.6 (5.0-14.0) mmol/L BUN 20 H D (7-18) mg/dL Creatinine 1.0 (0.8-1.3) mg/dL Est Cr Clr Drug Dosing 68.68 mL/min Estimated GFR (MDRD) > 60 (>60) Glucose 137 H (74-106) mg/dL Calcium 8.7 (8.5-10.1) mg/dL Med Orders - Current: Current Medications Acetaminophen (Tylenol) 650 mg PO Q4H PRN PRN Reason: Pain/Fever Hydrocodone Bitart/Acetaminophen ([place] 325-5 Mg) 1 tab PO Q3H PRN PRN Reason: Pain Albuterol/Ipratropium (Duoneb 3.0-0.5 Mg/3 Ml) 3 ml NEB Q4H [facility] Last Admin: 01/03/19 10:33 Dose: 3 ml Amlodipine Besylate (Norvasc) 10 mg PO DAILY [facility] Last Admin: 01/03/19 09:18 Dose: 10 mg Bandage/Support Products ( Nasal Double Spindle Shaper Operator) 1 applic NASBOTH BID [facility] Last Admin: 01/03/19 09:17 Dose: 1 applic Docusate Sodium (Colace) 100 mg PO BID PRN PRN Reason: Constipation Last Admin: 01/02/19 10:04 Dose: 100 mg Enoxaparin Sodium (Lovenox) 30 mg SUBCUT DAILY [facility] Last Admin: 01/03/19 09:18 Dose: 30 mg Furosemide (Lasix) 20 mg PO DAILY [facility] Last Admin: 01/03/19 09:18 Dose: 20 mg Hydromorphone HCl (Dilaudid) 1 mg IVPUSH Q1H PRN PRN Reason: Breakthrough Pain Last Admin: 01/01/19 22:36 Dose: 1 mg Magnesium Hydroxide (Milk Of Magnesia) 30 ml PO BID PRN PRN Reason: Constipation Metoprolol Tartrate (Lopressor) 25 mg PO BID [facility] Last Admin: 01/03/19 09:19 Dose: 25 mg Verify Scop Patch 0 each TOP DAILY [facility] Last Admin: 01/03/19 09:19 Dose: Not Given Ondansetron HCl (Zofran) 4 mg IVPUSH Q6H PRN PRN Reason: Nausea/Vomiting Last Admin: 01/01/19 22:37 Dose: 4 mg Oxycodone/Acetaminophen (Percocet 325-5 Mg) 1 - 2 tab PO Q4H PRN PRN Reason: Pain Last Admin: 01/03/19 08:49 Dose: 2 tab Discontinued Medications Acetaminophen (Tylenol Extra Strength) 1,000 mg PO ONETIME ONE Stop: 12/31/18 07:31 Last Admin: 12/31/18 07:00 Dose: 1,000 mg Albuterol/Ipratropium (Duoneb 3.0-0.5 Mg/3 Ml) 3 ml NEB ONETIME ONE Stop: 12/31/18 07:12 Last Admin: 12/31/18 08:04 Dose: 3 ml Albuterol/Ipratropium (Duoneb 3.0-0.5 Mg/3 Ml) 3 ml NEB Q4H PRN PRN Reason: Shortness of Breath Last Admin: 01/02/19 06:56 Dose: 3 ml Bumetanide (Bumex) 2 mg IVPUSH ONETIME ONE Stop: 01/02/19 10:31 Last Admin: 01/02/19 10:59 Dose: 2 mg Fentanyl (Sublimaze) Confirm Administered Dose 100 mcg .ROUTE .STK-MED ONE Stop: 12/31/18 07:22 Fentanyl (Sublimaze) Confirm Administered Dose 100 mcg .ROUTE .STK-MED ONE Stop: 12/31/18 10:56 Furosemide (Lasix) 20 mg IV ONETIME ONE Stop: 01/01/19 17:31 Last Admin: 01/01/19 17:32 Dose: 20 mg Furosemide (Lasix) 60 mg IVPUSH ONETIME ONE Stop: 01/02/19 00:02 Last Admin: 01/02/19 00:23 Dose: 60 mg Furosemide (Lasix) Confirm Administered Dose 100 mg .ROUTE .STK-MED ONE Stop: 01/02/19 00:16 Last Admin: 01/02/19 00:22 Dose: Not Given Gabapentin (Neurontin) 300 mg PO ONETIME ONE Stop: 12/31/18 07:01 Last Admin: 12/31/18 06:59 Dose: 300 mg Clindamycin Phosphate 900 mg/ (Sodium Chloride) 106 mls @ 212 mls/hr IV ONETIME ONE Stop: 12/31/18 08:29 Last Admin: 12/31/18 09:39 Dose: 212 mls/hr Lactated Ringer's (Ringers, Lactated) 1,000 mls @ 75 mls/hr IV ASDIRECTED [facility] Last Admin: 12/31/18 07:54 Dose: 75 mls/hr Tranexamic Acid 1,000 mg/ (Sodium Chloride) 60 mls @ 240 mls/hr IV ONETIME ONE Stop: 12/31/18 08:44 Last Admin: 12/31/18 09:40 Dose: 240 mls/hr Tranexamic Acid 1,000 mg/ (Sodium Chloride) 60 mls @ 240 mls/hr IV ONETIME PRN PRN Reason: IF ORDERED BY SURGEON Stop: 12/31/18 11:01 Lactated Ringer's (Ringers, Lactated) Confirm Administered Dose 1,000 mls @ as directed .ROUTE .STK-MED ONE Stop: 12/31/18 09:58 Tranexamic Acid 1,000 mg/ (Sodium Chloride) 60 mls @ 240 mls/hr IV ONETIME ONE Stop: 12/31/18 12:14 Last Admin: 12/31/18 11:34 Dose: 240 mls/hr Sodium Chloride (Normal Saline) 1,000 mls @ 125 mls/hr IV ASDIRECTED [facility] Last Admin: 01/01/19 10:06 Dose: 125 mls/hr Cefazolin Sodium/Dextrose 1 gm (/ Premix) 50 mls @ 100 mls/hr IV Q8H [facility] Stop: 01/01/19 06:29 Last Admin: 01/01/19 05:28 Dose: 100 mls/hr Midazolam HCl (Versed 1 Mg/Ml) Confirm Administered Dose 2 mg .ROUTE .STK-MED ONE Stop: 12/31/18 07:22 Midazolam HCl (Versed 1 Mg/Ml) Confirm Administered Dose 2 mg .ROUTE .STK-MED ONE Stop: 12/31/18 09:21 Morphine Sulfate (Morphine) 2 mg IV ONETIME ONE Stop: 12/31/18 11:53 Last Admin: 12/31/18 11:57 Dose: 2 mg Morphine Sulfate (Morphine) 1 mg IVPUSH Q1H PRN PRN Reason: Breakthrough Pain Last Admin: 12/31/18 15:42 Dose: 1 mg Potassium Chloride (Klor-Con M20) 40 meq PO ONETIME ONE Stop: 01/03/19 09:31 Last Admin: 01/03/19 10:24 Dose: 40 meq Povidone Iodine (Betadine 10% Soln) Confirm Administered Dose 1 ml .ROUTE .STK- MED ONE Stop: 12/31/18 06:48 Last Admin: 12/31/18 09:52 Dose: 5 ml Propofol (Diprivan 20 Ml) Confirm Administered Dose 200 mg .ROUTE .STK-MED ONE Stop: 12/31/18 07:23 Propofol (Diprivan 20 Ml) Confirm Administered Dose 200 mg .ROUTE .STK-MED ONE Stop: 12/31/18 09:39 Propofol (Diprivan 20 Ml) Confirm Administered Dose 200 mg .ROUTE .STK-MED ONE Stop: 12/31/18 10:03 Propofol (Diprivan 20 Ml) Confirm Administered Dose 200 mg .ROUTE .STK-MED ONE Stop: 12/31/18 10:25 Propofol (Diprivan 20 Ml) Confirm Administered Dose 200 mg .ROUTE .STK-MED ONE Stop: 12/31/18 10:45 Propofol (Diprivan 20 Ml) Confirm Administered Dose 200 mg .ROUTE .STK-MED ONE Stop: 12/31/18 10:57 Scopolamine (Transderm-Scop) 1.5 mg TOP ONETIME ONE Stop: 12/31/18 08:01 Last Admin: 12/31/18 07:00 Dose: 1.5 mg - Exam Quality Assessment: Supplemental Oxygen General: Alert, Oriented, Cooperative, No Acute Distress Lungs: Clear to Auscultation, Normal Respiratory Effort Cardiovascular: Regular Rate, Regular Rhythm GI/Abdominal Exam: Soft, No Distention Extremities: No Pedal Edema Wound/Incisions: Dressing Dry and Intact Psy/Mental Status: Alert, Normal Affect - Problem List Review Problem List Initiated/Reviewed/Updated: Yes - Plan Plan:: ASSESSMENT AND PLAN - Hypoxia - Pulmonary exam benign. Seems to be slowly improving. Suspect multiple contributors including chronic lung disease, hypoventilation from obesity and recent surgery. -Continue daily diuretic -Supplement oxygen with goal to keep saturations 90% or greater -Reassess volume status in the morning -consider CT scan if not improving Obstructive sleep apnea - he has been using his CPap Status post right total knee arthroplasty - pain well-controlled. He has been working with physical therapy. -Postoperative care per orthopedic service Disposition -I would anticipate he should be ready for prison discharge tomorrow. Haroon Hawthorne M.D.
[2019-01-03] MEDS: Docusate Sodium 100 MG Cap PO PRN (14:01)
[2019-01-04] MEDS: Albuterol/Ipratropium 3.0-0.5 MG/3 ML Neb Soln NEB SCH ×2 (02:36→07:08)
[2019-01-04] MEDS ORDERED: Calcium Carbonate 500 MG Tab.Chew PO PRN (05:41)
[2019-01-04] MEDS ORDERED: Ondansetron 4 MG Tab.DIS PO PRN (05:43)
[2019-01-04] MEDS: Acetaminophen/oxyCODONE 325-5 MG Tab PO PRN ×2 (05:48→10:06)
[2019-01-04 07:38] VITALS: BP 129/58; PULSE 96
[2019-01-04] MEDS: Nozin Nasal Sanitizer NASBOTH SCH (09:35)
[2019-01-04] MEDS: Metoprolol Tartrate 25 MG Tab PO SCH (09:36)
[2019-01-04] MEDS: Furosemide 20 MG Tab PO SCH (09:36)
[2019-01-04] MEDS: amLODIPine 10 MG Tab PO SCH (09:36)
[2019-01-04] MEDS: Enoxaparin 30 MG/0.3 ML Syringe SUBCUT SCH (09:36)
[2019-01-04] MEDS: VERIFY SCOP PATCH TOP SCH (09:36)
--- NOTE | 2019-01-04 09:36 | PCM.DCSUM1 ---
Discharge Summary - Hospital Course Free Text/Narrative:: 63 year old admitted for elective right TKA Diagnosis: Stroke: No - Discharge Data Discharge Date: 01/04/19 Discharge Disposition: DC/Tfer to SNF 03 Condition: Good - Referral to Home Health Date of Face to Face Encounter: 01/04/19 Primary Care Physician: Fredrick Belcher MD - Discharge Diagnosis/Problem(s) (1) Sleep apnea SNOMED Code(s): 01672391 ICD Code: G47.30 - SLEEP APNEA, UNSPECIFIED Status: Acute Current Visit: Yes Qualifiers: Sleep apnea type: obstructive Qualified Code(s): G47.33 - Obstructive sleep apnea (adult) (pediatric) (2) Status post total right knee replacement SNOMED Code(s): 4465713579783, 4729547470780 ICD Code: Z96.651 - PRESENCE OF RIGHT ARTIFICIAL KNEE JOINT Status: Acute Current Visit: Yes (3) Morbid obesity with BMI of 50.0-59.9, adult SNOMED Code(s): 796451077, 29287848584631 ICD Code: E66.01 - MORBID (SEVERE) OBESITY DUE TO EXCESS CALORIES; Z68.43 - BODY MASS INDEX (BMI) 50-59.9, ADULT Status: Chronic Current Visit: No (4) Hypertension SNOMED Code(s): 10512283 ICD Code: I10 - ESSENTIAL (PRIMARY) HYPERTENSION Status: Acute Current Visit: Yes Qualifiers: Hypertension type: essential hypertension Qualified Code(s): I10 - Essential (primary) hypertension (5) Hypoxia SNOMED Code(s): 588507874 ICD Code: R09.02 - HYPOXEMIA Status: Acute Current Visit: Yes - Patient Summary/Data Consults: Consultations 12/31/18 11:48 Consult to Case Management/Back Hoe Machine Operator [CONS] Routine Comment: Physician Instructions: Service(s) to be Consulted: Case Management Reason for Consult: Plan for Discharge PT Evaluation and Treatment [CONS] Routine Please Evaluate and Treat. PT Reason for Consult: Post op Ortho Surgery Pending Discharge: Yes Discharge Disposition: Senior Care Facility Special Instructions: WBAT and ROM as tolerated This query below is only for informational purposes and is not editable. 12/31/18 13:10 Consult to Occupational Therapy [OT Evaluation and Treatment] [CONS] Routine Please Evaluate and Treat. OT Reason for Consult: ADL's Pending Discharge: Yes Discharge Disposition: Senior Care Facility Special Instructions: ADLs and adaptive devices This query below is only for informational purposes and is not editable. Admission Diagnosis/Problem: Osteoarthritis 01/01/19 16:54 Consult to Physician [CONS] Routine Consulting Provider: Haroon Hawthorne Call Completed to Consulting Physician: Yes Reason for Consult: Post op hypoxia Date Notified: 01/01/19 Hospital Course: Tolerated procedure well, some difficulty with pain control initially, medications adjusted. Problems maintaining O2 sats, Hospitalist consulted, diuretics ordered and nebulizers used on scheduled basis, SOB lowly improved. PT/OT limited due to SOB. Plan transfer to SNF for continued PT/OT. - Patient Instructions Diet: Usual Diet as Tolerated Activity: Apply Ice, As Tolerated, Elevate Extremity, Full Weight Bearing Driving: Do Not Drive Showering/Bathing: May Shower Wound/Incision Care: Keep Operative Site/Wound Site Clean and Dry Notify Provider of: Fever, Increased Pain, Swelling and Redness, Drainage, Nausea and/or Vomiting - Discharge Plan *PRESCRIPTION DRUG MONITORING PROGRAM REVIEWED*: No *COPY OF PRESCRIPTION DRUG MONITORING REPORT IN PATIENT STACY: No Prescriptions/Med Rec: oxyCODONE HCl/Acetaminophen [Percocet 5-325 mg Tablet] 2 each PO Q6HR PRN #40 tablet PRN Reason: Pain Enoxaparin Sodium [Lovenox] 30 mg SQ DAILY 28 Days #28 ml Home Medications: Home Meds amLODIPine Besylate [Norvasc] 10 mg PO DAILY 12/13/12 [History] Furosemide [Lasix] 20 mg PO DAILY 08/22/16 [History] Aspirin 81 mg PO DAILY 08/31/16 [History] Ibuprofen 800 mg PO QID PRN 07/17/17 [History] Metoprolol Tartrate 25 mg PO BID 07/16/18 [History] Enoxaparin Sodium [Lovenox] 30 mg SQ DAILY 28 Days #28 ml 01/04/19 [Rx] oxyCODONE HCl/Acetaminophen [Percocet 5-325 mg Tablet] 2 each PO Q6HR PRN #40 tablet 01/04/19 [Rx] Oxygen Therapy Mode: Nasal Cannula Oxygen Flow Rate (L/min): 3 Maintain SpO2% greater than: 92 Patient Handouts: Total Knee Replacement, Care After, [id number], Preventing Constipation After Surgery Referrals: Hira Hampton MD [Physician] - 01/15/19 10:30 am (Please arrive 15 minutes latonya to register for your appointment. Please register at the ER desk.) - Discharge Summary/Plan Comment DC Time >30 min.: Yes - General Info Functional Status: Reports: Pain Controlled, Tolerating Diet, Ambulating, Urinating - Review of Systems General: Reports: No Symptoms HEENT: Reports: No Symptoms Pulmonary: Reports: No Symptoms, Shortness of Breath Cardiovascular: Reports: No Symptoms Gastrointestinal: Reports: No Symptoms Genitourinary: Reports: No Symptoms Musculoskeletal: Reports: Leg Pain Skin: Reports: No Symptoms Neurological: Reports: No Symptoms Psychiatric: Reports: No Symptoms - Patient Data Vitals - Most Recent: Last Vital Signs Temp 36.0 C 01/04/19 07:35 Pulse 96 01/04/19 07:35 Resp 20 01/04/19 07:35 BP 129/58 L 01/04/19 07:35 Pulse Ox 86 L 01/04/19 07:35 Weight - Most Recent: 169.644 kg I&O - Last 24 hours: Intake & Output 01/03/19 01/04/19 01/04/19 22:59 06:59 14:59 Output Total 300 800 300 Balance -300 -800 -300 Med Orders - Current: Current Medications Acetaminophen (Tylenol) 650 mg PO Q4H PRN PRN Reason: Pain/Fever Hydrocodone Bitart/Acetaminophen ([place] 325-5 Mg) 1 tab PO Q3H PRN PRN Reason: Pain Albuterol/Ipratropium (Duoneb 3.0-0.5 Mg/3 Ml) 3 ml NEB Q4H [facility] Last Admin: 01/04/19 07:08 Dose: 3 ml Amlodipine Besylate (Norvasc) 10 mg PO DAILY [facility] Last Admin: 01/03/19 09:18 Dose: 10 mg Bandage/Support Products ( Nasal Field Scout) 1 applic NASBOTH BID [facility] Last Admin: 01/03/19 20:12 Dose: 1 applic Calcium Carbonate/Glycine (Tums) 1,000 mg PO Q2H PRN PRN Reason: Indigestion Last Admin: 01/04/19 05:48 Dose: 1,000 mg Docusate Sodium (Colace) 100 mg PO BID PRN PRN Reason: Constipation Last Admin: 01/03/19 14:01 Dose: 100 mg Enoxaparin Sodium (Lovenox) 30 mg SUBCUT DAILY [facility] Last Admin: 01/03/19 09:18 Dose: 30 mg Furosemide (Lasix) 20 mg PO DAILY [facility] Last Admin: 01/03/19 09:18 Dose: 20 mg Hydromorphone HCl (Dilaudid) 1 mg IVPUSH Q1H PRN PRN Reason: Breakthrough Pain Last Admin: 01/01/19 22:36 Dose: 1 mg Magnesium Hydroxide (Milk Of Magnesia) 30 ml PO BID PRN PRN Reason: Constipation Metoprolol Tartrate (Lopressor) 25 mg PO BID [facility] Last Admin: 01/03/19 20:12 Dose: 25 mg Verify Scop Patch 0 each TOP DAILY [facility] Last Admin: 01/03/19 09:19 Dose: Not Given Ondansetron HCl (Zofran Odt) 4 mg PO Q4H PRN PRN Reason: Nausea/Vomiting Oxycodone/Acetaminophen (Percocet 325-5 Mg) 1 - 2 tab PO Q4H PRN PRN Reason: Pain Last Admin: 01/04/19 05:48 Dose: 2 tab Discontinued Medications Acetaminophen (Tylenol Extra Strength) 1,000 mg PO ONETIME ONE Stop: 12/31/18 07:31 Last Admin: 12/31/18 07:00 Dose: 1,000 mg Albuterol/Ipratropium (Duoneb 3.0-0.5 Mg/3 Ml) 3 ml NEB ONETIME ONE Stop: 12/31/18 07:12 Last Admin: 12/31/18 08:04 Dose: 3 ml Albuterol/Ipratropium (Duoneb 3.0-0.5 Mg/3 Ml) 3 ml NEB Q4H PRN PRN Reason: Shortness of Breath Last Admin: 01/02/19 06:56 Dose: 3 ml Bumetanide (Bumex) 2 mg IVPUSH ONETIME ONE Stop: 01/02/19 10:31 Last Admin: 01/02/19 10:59 Dose: 2 mg Fentanyl (Sublimaze) Confirm Administered Dose 100 mcg .ROUTE .STK-MED ONE Stop: 12/31/18 07:22 Fentanyl (Sublimaze) Confirm Administered Dose 100 mcg .ROUTE .STK-MED ONE Stop: 12/31/18 10:56 Furosemide (Lasix) 20 mg IV ONETIME ONE Stop: 01/01/19 17:31 Last Admin: 01/01/19 17:32 Dose: 20 mg Furosemide (Lasix) 60 mg IVPUSH ONETIME ONE Stop: 01/02/19 00:02 Last Admin: 01/02/19 00:23 Dose: 60 mg Furosemide (Lasix) Confirm Administered Dose 100 mg .ROUTE .STK-MED ONE Stop: 01/02/19 00:16 Last Admin: 01/02/19 00:22 Dose: Not Given Gabapentin (Neurontin) 300 mg PO ONETIME ONE Stop: 12/31/18 07:01 Last Admin: 12/31/18 06:59 Dose: 300 mg Clindamycin Phosphate 900 mg/ (Sodium Chloride) 106 mls @ 212 mls/hr IV ONETIME ONE Stop: 12/31/18 08:29 Last Admin: 12/31/18 09:39 Dose: 212 mls/hr Lactated Ringer's (Ringers, Lactated) 1,000 mls @ 75 mls/hr IV ASDIRECTED [facility] Last Admin: 12/31/18 07:54 Dose: 75 mls/hr Tranexamic Acid 1,000 mg/ (Sodium Chloride) 60 mls @ 240 mls/hr IV ONETIME ONE Stop: 12/31/18 08:44 Last Admin: 12/31/18 09:40 Dose: 240 mls/hr Tranexamic Acid 1,000 mg/ (Sodium Chloride) 60 mls @ 240 mls/hr IV ONETIME PRN PRN Reason: IF ORDERED BY SURGEON Stop: 12/31/18 11:01 Lactated Ringer's (Ringers, Lactated) Confirm Administered Dose 1,000 mls @ as directed .ROUTE .STK-MED ONE Stop: 12/31/18 09:58 Tranexamic Acid 1,000 mg/ (Sodium Chloride) 60 mls @ 240 mls/hr IV ONETIME ONE Stop: 12/31/18 12:14 Last Admin: 12/31/18 11:34 Dose: 240 mls/hr Sodium Chloride (Normal Saline) 1,000 mls @ 125 mls/hr IV ASDIRECTED [facility] Last Admin: 01/01/19 10:06 Dose: 125 mls/hr Cefazolin Sodium/Dextrose 1 gm (/ Premix) 50 mls @ 100 mls/hr IV Q8H [facility] Stop: 01/01/19 06:29 Last Admin: 01/01/19 05:28 Dose: 100 mls/hr Midazolam HCl (Versed 1 Mg/Ml) Confirm Administered Dose 2 mg .ROUTE .STK-MED ONE Stop: 12/31/18 07:22 Midazolam HCl (Versed 1 Mg/Ml) Confirm Administered Dose 2 mg .ROUTE .STK-MED ONE Stop: 12/31/18 09:21 Morphine Sulfate (Morphine) 2 mg IV ONETIME ONE Stop: 12/31/18 11:53 Last Admin: 12/31/18 11:57 Dose: 2 mg Morphine Sulfate (Morphine) 1 mg IVPUSH Q1H PRN PRN Reason: Breakthrough Pain Last Admin: 12/31/18 15:42 Dose: 1 mg Ondansetron HCl (Zofran) 4 mg IVPUSH Q6H PRN PRN Reason: Nausea/Vomiting Last Admin: 01/01/19 22:37 Dose: 4 mg Potassium Chloride (Klor-Con M20) 40 meq PO ONETIME ONE Stop: 01/03/19 09:31 Last Admin: 01/03/19 10:24 Dose: 40 meq Povidone Iodine (Betadine 10% Soln) Confirm Administered Dose 1 ml .ROUTE .STK- MED ONE Stop: 12/31/18 06:48 Last Admin: 12/31/18 09:52 Dose: 5 ml Propofol (Diprivan 20 Ml) Confirm Administered Dose 200 mg .ROUTE .STK-MED ONE Stop: 12/31/18 07:23 Propofol (Diprivan 20 Ml) Confirm Administered Dose 200 mg .ROUTE .STK-MED ONE Stop: 12/31/18 09:39 Propofol (Diprivan 20 Ml) Confirm Administered Dose 200 mg .ROUTE .STK-MED ONE Stop: 12/31/18 10:03 Propofol (Diprivan 20 Ml) Confirm Administered Dose 200 mg .ROUTE .STK-MED ONE Stop: 12/31/18 10:25 Propofol (Diprivan 20 Ml) Confirm Administered Dose 200 mg .ROUTE .STK-MED ONE Stop: 12/31/18 10:45 Propofol (Diprivan 20 Ml) Confirm Administered Dose 200 mg .ROUTE .STK-MED ONE Stop: 12/31/18 10:57 Scopolamine (Transderm-Scop) 1.5 mg TOP ONETIME ONE Stop: 12/31/18 08:01 Last Admin: 12/31/18 07:00 Dose: 1.5 mg - Exam Quality Assessment: Reports: Supplemental Oxygen HEENT: Reports: Pupils Equal, Pupils Reactive, EOMI, Mucous Membr. Moist/[place] Neck: Reports: Supple Lungs: Reports: Decreased Breath Sounds Cardiovascular: Reports: Regular Rate, Regular Rhythm GI/Abdominal Exam: Normal Bowel Sounds, Soft, Non-Tender, No Organomegaly, No Distention, No Abnormal Bruit, No Mass, Pelvis Stable (Male) Exam: Deferred Rectal (Males) Exam: Deferred Back Exam: Reports: Normal Inspection, Full Range of Motion Extremities: Joint Swelling, Leg Pain, Limited Range of Motion Skin: Reports: Warm, Dry, Intact Wound/Incisions: Reports: Healing Well, No Drainage Neurological: Reports: No New Focal Deficit Psy/Mental Status: Reports: Alert, Normal Affect, Normal Mood
[2019-01-04] MEDS: Docusate Sodium 100 MG Cap PO PRN (09:42)
== END 2019-01-04 10:40 | DRG 470 ==
LOC: JP.SDS 06:28 → OBSVTOIN 11:48 → JP.MS 11:48 → UNDOADMOB 11:48 → JP.MS 11:48 → INTOOBSV 11:48 → UNDODISIN 01-04 10:40
PROVIDERS: ADMIT Specialist; ATTEND Specialist
PROC: 0SRC0J9 Replacement of Right Knee Joint with Synthetic Substitute, Cemented, Open Approach (ICD-10-PCS; principal; 2018-12-31)
DX: M17.11 Unilateral primary osteoarthritis, right knee (principal); Z68.43 Body mass index [BMI] 50.0-59.9, adult; G47.33 Obstructive sleep apnea (adult) (pediatric); E66.01 Morbid (severe) obesity due to excess calories; I10 Essential (primary) hypertension; Z79.899 Other long term (current) drug therapy; R09.02 Hypoxemia; R73.03 Prediabetes; Z68.41 Body mass index [BMI] 40.0-44.9, adult; M08.00 Unspecified juvenile rheumatoid arthritis of unspecified site; Z96.652 Presence of left artificial knee joint; Z79.82 Long term (current) use of aspirin; Z88.0 Allergy status to penicillin; Z91.013 Allergy to seafood; Z87.891 Personal history of nicotine dependence; Z90.89 Acquired absence of other organs; Z99.81 Dependence on supplemental oxygen
CPT/HCPCS: 27447; 36415; 73560 ×2; 80048; 85027; 86850; 86900; 86901; 94640; A9270 ×4; C1713; C1776 ×3; J2250 ×2; J2704 ×6; J3010 ×2; J3490; J7030; J7050 ×2; J7120 ×2; 36600; 71045; 82803; 94762; 97110-GP; 97140-GP; 97161-GP; 97165-GO; 97530-GP; J0690; J1170; J1650; J1940; J2270; J2405; J7620-GY

== ENCOUNTER 2022-04-05 07:26 | Day surgery (SDC) | payer MEDICARE ==
[2022-04-05] MEDS ORDERED: Propofol 200 MG/20 ML SDV ONE (07:50)
[2022-04-05] MEDS ORDERED: Lactated Ringers 1,000 ML IV SCH (07:50)
[2022-04-05] MEDS ORDERED: fentaNYL 50 MCG/ML SDV ONE (07:51)
[2022-04-05] MEDS ORDERED: Midazolam 1 MG/ML 2 ML SDV ONE (07:51)
[2022-04-05 10:17] VITALS: BP 144/67; PULSE 73
== END 2022-04-05 10:54 | disposition home or self-care (01) ==
LOC: JP.SDS 07:26
PROVIDERS: ATTEND Student in an Organized Health Care Education/Training Program
DX: Z12.11 Encounter for screening for malignant neoplasm of colon (principal); D12.3 Benign neoplasm of transverse colon; K57.30 Diverticulosis of large intestine without perforation or abscess without bleeding; I10 Essential (primary) hypertension; J44.9 Chronic obstructive pulmonary disease, unspecified; Z88.0 Allergy status to penicillin; Z91.013 Allergy to seafood; Z79.899 Other long term (current) drug therapy
CPT/HCPCS: 45380; 45385; J2250; J2704; J3010; J7120

== ENCOUNTER 2022-07-15 16:19 | Emergency (ER) | payer MEDICARE ==
[2022-07-15 18:30] VITALS: PULSE 68
[2022-07-15 19:44] VITALS: BP 130/62
== END 2022-07-15 19:58 | disposition other institution (70) ==
LOC: JP.ED 16:19
DX: R00.1 Bradycardia, unspecified (principal); G90.01 Carotid sinus syncope; I10 Essential (primary) hypertension; J44.9 Chronic obstructive pulmonary disease, unspecified; K21.9 Gastro-esophageal reflux disease without esophagitis; E66.9 Obesity, unspecified; Z88.0 Allergy status to penicillin; Z91.013 Allergy to seafood; Z79.82 Long term (current) use of aspirin; Z79.899 Other long term (current) drug therapy; Z68.43 Body mass index [BMI] 50.0-59.9, adult
CPT/HCPCS: 93005; 99284

== ENCOUNTER 2023-03-25 15:41 | Emergency (ER) | payer MEDICARE ==
[2023-03-25 16:25] VITALS: BP 144/52; PULSE 66
[2023-03-25 17:13] LABS: INFLUENZA A NAA NEGATIVE (NEGATIVE); INFLUENZA B NAA NEGATIVE (NEGATIVE); RESPIRATORY SYNCYTIAL VIR NAA NEGATIVE (NEGATIVE)
[2023-03-25 17:16] LABS: CORONAVIRUS COVID-19 NAA POSITIVE (NEGATIVE)
[2023-03-25 17:57] LABS: ANION GAP 11.7 mmol/L (5.0-14.0); CALCIUM 8.7 mg/dL (8.5-10.1); EST CRCL DRUG DOSING (CG) 65.18 mL/min; POTASSIUM,K 3.7 mmol/L (3.6-5.2)
== END 2023-03-25 18:17 | disposition home or self-care (01) ==
LOC: JP.ED 15:41 → EEVIPCON 15:41 → JP.ED 18:17
DX: U07.1 COVID-19 (principal); I10 Essential (primary) hypertension; J44.9 Chronic obstructive pulmonary disease, unspecified; K21.9 Gastro-esophageal reflux disease without esophagitis; E66.9 Obesity, unspecified; Z79.01 Long term (current) use of anticoagulants; Z79.899 Other long term (current) drug therapy; Z88.0 Allergy status to penicillin; Z91.013 Allergy to seafood; Z68.43 Body mass index [BMI] 50.0-59.9, adult
CPT/HCPCS: 0241U; 36415; 80048; 99284